=== PATIENT | female | born 1945 | race Caucasian/White ===

== ENCOUNTER → 2017-07-22 | Outpatient (CLI) | payer OTHER ==
[2013-11-02 10:03] VITALS: BP 162/66
--- NOTE | 2017-07-23 09:57 | RAD ---
Upper GI and small-bowel follow-through Indication: Abdominal pain. History of duodenal ulcer. Technique: Multiple spot radiographic images were obtained. Fluoroscopic images were obtained after s wallowing barium per protocol. 2.2 min of total fluoro time recorded. Findings: Small hiatal hernia was noted. Free reflux was seen throughout the examination, to the leve l of the cervical esophagus. Esophageal dysmotility with tertiary and secondary contractions noted. Sewing Machine Operator Floorperson radiograph suggests that there may be a left renal stone, measuring about 7 mm. The small bowel follow-through is normal with contrast entering the colon at approximately 15-30 min from the beginn ing of the examination. Swallowing in the cervical esophagus, with the oral phase of swallowing appears normal. Mild spine de generative changes noted. Stomach appears grossly normal without large ulceration identified. The duo denum appears normal. Jejunum is in normal position. Impression: 1. Free esophageal reflux to the level of the cervical esophagus with esophageal dysmotility. 2. Small hiatal hernia. 3. While no large lesion is identified, endoscopic followup offers increased sensitivity and specific ity for underlying lesion. 4. Possible left renal stone. 5. Normal small bowel follow-through. Reported By:
== END | disposition home or self-care (01) | DRG 392 ==
LOC: RAD 11:20
PROVIDERS: ATTEND Family Medicine
DX: R10.84 Generalized abdominal pain (principal); R11.0 Nausea; Z87.19 Personal history of other diseases of the digestive system; K21.9 Gastro-esophageal reflux disease without esophagitis; K44.9 Diaphragmatic hernia without obstruction or gangrene
CPT/HCPCS: 74241; 74250

== ENCOUNTER → 2018-02-03 | Outpatient (CLI) | payer OTHER ==
[2013-11-02 10:03] VITALS: BP 162/66
--- NOTE | 2018-02-04 15:21 | VAS ---
Examination: Bilateral lower extremity arterial duplex Doppler study. Clinical History: Left leg pain. Technique: Duplex Doppler Ultrasound was used to evaluate the arterial systems of the lower extremiti es bilaterally. Comparison: None available. Findings: The left and right ankle brachial index were not calculated. There is biphasic spectral wave forms in the right common femoral, proximal, mid and distal superfici al femoral, popliteal, posterior tibial and dorsalis pedis arteries. There is biphasic spectral wave forms in the left common femoral, proximal, mid and distal superficia l femoral, popliteal, posterior tibial and dorsalis pedis arteries. There is mild atherosclerotic plaque seen bilaterally. Mildly elevated peak systolic velocities are n oted in the proximal, mid and distal portions of the left and right posterior tibial artery is, sugge stive of stenoses. The following peak systolic flow velocities are measured in cm/s. Right Leg Left Leg Common femoral artery 135 133 SFA proximal 93 112 SFA mid 110 101 SFA distal 112 107 Popliteal 92 72 Posterior tibial proximal 108 104 Posterior tibial mid 126 106 Posterior tibial distal 92 100 Dorsalis pedis 76 29 Impression: 1. Mildly elevated peak systolic velocities are noted in the proximal, mid and distal portions of the left and right posterior tibial artery is, suggestive of stenoses. Reported By:
== END ==
LOC: RAD 15:06
PROVIDERS: ATTEND Psychiatry & Neurology Neurology
DX: M79.605 Pain in left leg (principal); I73.89 Other specified peripheral vascular diseases
CPT/HCPCS: 93925

== ENCOUNTER → 2018-02-25 | Outpatient (CLI) | payer OTHER ==
[2013-11-02 10:03] VITALS: BP 162/66
--- NOTE | 2018-02-25 16:56 | RAD ---
Examination: Left lower leg, two views History: Foreign body Findings: Intact tibia and fibula, without evidence for fracture, bone destruction or infection. Ther e is a 1.0 cm soft tissue opacity a medially anterior, and 1.5 cm lateral to the mid tibia. Impression: No acute osseous abnormality. Soft tissue density as described may represent subcutaneo us foreign object. Correlate clinically. Reported By:
== END ==
LOC: RAD 16:20
PROVIDERS: ATTEND Surgery
DX: S80.852A Superficial foreign body, left lower leg, initial encounter (principal); X58.XXXA Exposure to other specified factors, initial encounter
CPT/HCPCS: 73590

== ENCOUNTER → 2018-03-04 | Outpatient (CLI) | payer OTHER ==
[2013-11-02 10:03] VITALS: BP 162/66
[2018-03-04 15:59] LABS: BASOPHILS % (AUTO) 0.5 % (0.2-1.0); EOSINOPHILS % (AUTO) 0.3 % (0.9-2.9); HEMOGLOBIN 14.8 g/dL (12.0-16.0); LYMPHOCYTES # (AUTO) 2.9 X10^3/uL (1.3-2.9); LYMPHOCYTES % (AUTO) 38.7 % (21.0-51.0); MEAN CORPUSCULAR HGB CONC 33.6 g/dL (33.0-35.0); MEAN CORPUSCULAR VOLUME 98.1 fL (80.0-100.0); MEAN PLATELET VOLUME 8.1 fL (7.4-11.0); MONOCYTES # (AUTO) 0.4 x10^3/uL (0.3-0.8); MONOCYTES % (AUTO) 5.9 % (0.0-13.0); NEUTROPHILS # (AUTO) 4.1 x10^3/uL (2.2-4.8); NEUTROPHILS % (AUTO) 54.6 % (42.0-75.0); PLATELET COUNT 237 X10^3/uL (150.0-450.0); RED BLOOD COUNT 4.49 X10^6/uL (3.5-5.4); RED CELL DISTRIBUTION WIDTH 13.2 % (11.6-16.5); WHITE BLOOD COUNT 7.6 X10^3/uL (3.6-10.0)
[2018-03-04 16:12] LABS: ALANINE AMINOTRANSFERASE 44 Units/L (12-78); ALBUMIN 3.9 g/dL (3.4-5.0); ALKALINE PHOSPHATASE 70 Units/L (46-116); ASPARTATE AMINO TRANSFERASE 30 Units/L (15-37); BLOOD UREA NITROGEN 13 mg/dL (7-18); CALCIUM 8.5 mg/dL (8.5-10.1); CHLORIDE 109 mmol/L (98-107); COR NA(FOR HYPERGLY) 144 mmol/L (136-145); CREATININE 0.96 mg/dL (0.55-1.02); SODIUM 144 mmol/L (136-145); TOTAL PROTEIN 7.4 g/dL (6.4-8.2); eGFR BLACK RACES > 60 (>60); eGFR NON BLACK RACES > 60 (>60)
== END ==
LOC: LAB 15:30
PROVIDERS: ATTEND Surgery
DX: S80.859A Superficial foreign body, unspecified lower leg, initial encounter (principal); X58.XXXA Exposure to other specified factors, initial encounter
CPT/HCPCS: 36415; 80053; 85025; 85730

== ENCOUNTER 2018-03-09 07:09 | Day surgery (SDC) | payer OTHER ==
[2018-03-09] MEDS ORDERED: MARCAINE 0.5% ONE (07:22)
[2018-03-09] MEDS ORDERED: LR 1000 ML IV 1,000 ML IV ONE (07:23)
[2018-03-09] MEDS ORDERED: HYDROGEN PEROXIDE 3% ONE (07:24)
[2018-03-09] MEDS ORDERED: BACITRACIN VIAL ONE (07:24)
[2018-03-09] MEDS ORDERED: BACTROBAN OINT ONE (07:24)
[2018-03-09] MEDS ORDERED: ANCEF 1 GM IV PREMIX* 1 GM/50 ML BAG IV ONE ×2 (07:44→08:00)
[2018-03-09] MEDS ORDERED: NS IRRIGATION 1000 ML 1,000 ML with BACITRACIN VIAL 50,000 UNIT IR ONE ×2 (08:12)
[2018-03-09] MEDS ORDERED: LR 1000 ML IV 1,000 ML IV SCH (09:00)
[2018-03-09 09:55] VITALS: BP 123/61
[2018-03-09] MEDS ORDERED: VERSED ONE ×2 (09:59→14:34)
[2018-03-09] MEDS ORDERED: DIPRIVAN VIAL ONE ×2 (09:59→14:34)
== END 2018-03-09 09:41 | disposition home or self-care (01) ==
LOC: SURG1 07:09
PROVIDERS: ATTEND Surgery
PROC: 0JCP0ZZ Extirpation of Matter from Left Lower Leg Subcutaneous Tissue and Fascia, Open Approach (ICD-10-PCS; principal; 2018-03-09 08:00)
DX: S80.852A Superficial foreign body, left lower leg, initial encounter (principal); X58.XXXA Exposure to other specified factors, initial encounter; I73.89 Other specified peripheral vascular diseases
CPT/HCPCS: 99100; A4222; S0020; J0690; J2250; J3490; J7120

== ENCOUNTER 2022-03-24 14:04 | Observation (INO) ==
--- NOTE | 2022-03-24 14:49 | DR.CP ---
HPI Time Seen Time Seen by Provider: 03/24/22 14:49 PCP Primary Care Physician: MALLORIE EL HPI Comment HPI Comment: PATIENT IS 76YR OLD MALE IN ER WITH CHEST PAIN TIME FEW HOURS. SHE WAS OUTSIDE IN THE [place] WHEN PAIN STARTED. GOING INSIDE AND PUTTING ON HER OXGEN HELP PAIN. PATIENT SAID PAIN IS CURRENTLY NONRAGIATING 5/10. DENIES PREVIOUS PAIN. Complaint Chief Complaint Doctor Comments: CHEST PAIN. Chief Complaint:: PT. STATES SHE WAS OUTSIDE IN THE [place] WITH HER DAUGHTER WHEN SHE BEGAN HAVING CHEST PAIN. PAIN BEGAN AT 1200. PT. STATES SHE WENT INSIDE TO LIE DOWN AND PUT ON HER PRN O2 AND FELT SOME BETTER BUT WANTED TO COME GET SEEN ABOUT. PT. STATES THE PAIN WORSENS WHEN SHE TAKES A DEEP BREATH. COVID-19 Coronavirus risk:travel/contact w/high risk person: No Has patient experienced Coronavirus symptoms: No Reviewed Nurses Notes Review: Yes Source History Provided: Patient Mode of Arrival Mode of Arrival: Ambulatory Timing Onset of Chief Complaint: 03/24/22 Came on: Suddenly Duration Duration: Constant Duration: Hours Location Location of Chest Pain: Chest Chest Pain Radiation Location: None Context Onset: With light exertion Cardiac Risk Factors: Hyperlipidemia, HTN and Diabetes PE Risk Factors: None History of: None Prehospital Care: Oxygen Quality Quality: Sharp Severity Severity: Moderate Modifying Factors Worsens: Exertion Impoves: Rest Associated Signs and Symptoms Associated Signs and Symptoms: Shortness of Breath Other History Other History: HTN, DM, CAD. PMH PMH Past Medical History: Yes Past Medical History: Diabetes, Dyslipidemia and Hypertension Past Medical History Comment: A-FIB Past Surgical History: Yes Surgical History: , Cholecystectomy, Hysterectomy, Tonsillectomy and Other Past Surgical History Comment: X 3 Family History History of Family Medical Conditions: Yes Family Medical History: Hypertension Social History Does patient currently use any type of tobacco product: No Have you used tobacco products in the last 12 months: No Type of Tobacco Use: None Does any household member use tobacco: No Alcohol Use: None Do you use any recreational Drugs:: No Lives With: Alone Lives Where: Home Travel Risk Coronavirus risk:travel/contact w/high risk person: No Has patient experienced Coronavirus symptoms: No Infectious screening In the last 2 months have you had wt loss of >10#?: NO Have you had fever, night sweats or hemotysis?: No Have you traveled outside the country in the last 6 months?: No Isolation: Standard ROS Review of Systems Constitutional: See HPI, Weakness and Fatigue; negative Fever Eyes: No Symptoms Reported and See HPI ENTM: No Symptoms Reported and See HPI; negative Nose Discharge and Nose Congestion Respiratoy: No Symptoms Reported, See HPI and Short of Breath; negative Moist Cough and Wheezing Cardiovascular: See HPI and Chest Pain Gastrointestinal/Abdominal: No Symptoms Reported and See HPI; negative Abdominal Pain, Diarrhea and Vomiting Genitourinary: No Symptoms Reported and See HPI; negative Dysuria and Hematuria Neurological: See HPI and Weakness; negative Headache and Dizziness Musculoskeletal: No Symptoms Reported and See HPI Integumentary: No Symptoms Reported and See HPI; negative Rash Hematologic/Lymphatic: No Symptoms Reported, See HPI, Easy Bleeding and Easy Bruising Endocrine: No Symptoms Reported and See HPI; negative Increased Thirst and Increased Urine Psychiatric: No Symptoms Reported and See HPI All Other Systems: Reviewed and Negative PE Vitals Vitals: Temperature 97.9 F Pulse Rate 66 Respiratory Rate 34 Blood Pressure 142/63 O2 Sat by Pulse Oximetry 98 General Limitations: No Limitations General Appearance: Alert and In No Apparent Distress Head Head Exam: Normal Inspection Eyes Eye exam: Normal Appearance; negative Scleral Icterus and Conjunctival Injection ENT ENT Exam: Normal Exam, Normal Oropharynx, Normal External Ear Exam and TM's Normal Bilaterally Chest Chest Inspection: Normal Inspection and Symmetric Chest Wall Rise; negative Tenderness Respiratory Respiratory Exam: Normal Lung Sounds Bilat; negative Accessory Muscle Use, Chest Wall Tenderness and Respiratory Distress Respiratory Exam: Bilateral: Rhonchi and Lower: Rhonchi Cardiovascular Cardiovascular Exam: Regular Rate, Normal Rhythm and Normal Heart Sounds; negative Systolic Murmur and Diastolic Murmur Pulse: Normal Edema: Normal Abdominal Exam Abdominal Exam: Normal Inspection, Normal Bowel Sounds and Soft; negative Tenderness Extremities Extremities Exam: Normal Inspection and Normal Capillary Refill Back Back Exam: Normal Inspection; negative (R) CVA Tenderness and (L) CVA Tenderness Neurologic Neurological Exam: Alert and Oriented X3; negative Motor Sensory Deficit Psychiatric Psychiatric Exam: Normal Affect and Normal Mood Skin Skin Exam: Warm, Dry, Intact and Normal Color COURSE Treatment Treatment: SEE ORDERS DONE WHILE PATIENT IN ER. LABS, EKG AND XRAY REPORT DISCUSSED WITH PATIENT. SHE IS ADMITTED TO HOSPITAL FOR FURTHER MANAGEMENT. Consultation Consultation Comments: DISCUSSED PATIENT WITH DR. HAN. HE WILL ADMIT PATIENT. Education/Counseling Education/Counseling: Patient Educated On: Diagnosis ROR Labs Reviewed Laboratory Results Reviewed?: Yes Result Diagrams: 03/25/22 03:00 03/25/22 03:00 Laboratory: WBC 7.0 X10^3/uL (3.6-10.0) 03/24/22 14:38 RBC 4.16 X10^6/uL (3.5-5.4) 03/24/22 14:38 Hgb 14.0 g/dL (12.0-16.0) 03/24/22 14:38 Hct 40.8 % (36.0-47.0) 03/24/22 14:38 MCV 98.2 fL (80.0-100.0) 03/24/22 14:38 MCH 33.6 pg (27.0-34.0) 03/24/22 14:38 MCHC 34.2 g/dL (33.0-35.0) 03/24/22 14:38 RDW 13.4 % (11.6-16.5) 03/24/22 14:38 Plt Count 204 X10^3/uL (150.0-450.0) 03/24/22 14:38 MPV 8.7 fL (7.4-11.0) 03/24/22 14:38 Neut % (Auto) 67.6 % (42.0-75.0) 03/24/22 14:38 Lymph % (Auto) 25.3 % (21.0-51.0) 03/24/22 14:38 [place] % (Auto) 5.6 % (0.0-13.0) 03/24/22 14:38 Eos % (Auto) 0.4 % (0.9-2.9) L 03/24/22 14:38 Baso % (Auto) 1.1 % (0.2-1.0) H 03/24/22 14:38 Neut # (Auto) 4.7 x10^3/uL (2.2-4.8) 03/24/22 14:38 Lymph # (Auto) 1.8 X10^3/uL (1.3-2.9) 03/24/22 14:38 [place] # (Auto) 0.4 x10^3/uL (0.3-0.8) 03/24/22 14:38 Eos # (Auto) 0.0 x10^3/uL (0.0-0.2) 03/24/22 14:38 Baso # (Auto) 0.1 X10^3/uL (0.0-0.1) 03/24/22 14:38 Absolute Nucleated RBC 0.1 /100WBC 03/24/22 14:38 PT 21.5 SECONDS (11.8-14.3) 03/24/22 14:38 INR Target Range - 03/24/22 14:38 INR 1.96 (0.8-1.3) H 03/24/22 14:38 APTT 30.6 SECONDS (22.9-36.5) 03/24/22 14:38 PTT Comment - 03/24/22 14:38 Sodium 142 mmol/L (136-145) 03/24/22 14:38 Corrected Sodium TNP 03/24/22 14:38 Potassium 4.1 mmol/L (3.5-5.1) 03/24/22 14:38 Chloride 107 mmol/L (98-107) 03/24/22 14:38 Carbon Dioxide 27.8 mmol/L (21-32) 03/24/22 14:38 BUN 14 mg/dL (7-18) 03/24/22 14:38 Creatinine 0.91 mg/dL (0.55-1.02) 03/24/22 14:38 Est GFR (MDRD) Af Amer > 60 (>60) 03/24/22 14:38 Est GFR (MDRD) Non-Af > 60 (>60) 03/24/22 14:38 Glucose 86 mg/dL (65-99) 03/24/22 14:38 POC Glucose (mg/dL) 94 mg/dL (65-99) 03/24/22 15:46 Calcium 8.9 mg/dL (8.5-10.1) 03/24/22 14:38 Corrected Calcium TNP 03/24/22 14:38 Magnesium 1.7 mg/dL (1.7-2.9) 03/24/22 14:38 Total Bilirubin 0.50 mg/dL (0.2-1.0) 03/24/22 14:38 AST 26 Units/L (15-37) 03/24/22 14:38 ALT 30 Units/L (12-78) 03/24/22 14:38 Alkaline Phosphatase 77 Units/L (46-116) 03/24/22 14:38 Creatine Kinase 97 Units/L (26-192) 03/24/22 14:38 CK-MB (CK-2) < 1.0 ng/mL (0-4.0) 03/24/22 14:38 CK/CKMB % Calc 1.0 % (<4) 03/24/22 14:38 Troponin I High Sens 8.6 ng/L (4.0-60.0) 03/24/22 14:38 Total Protein 6.3 g/dL (6.4-8.2) L 03/24/22 14:38 Albumin 3.5 g/dL (3.4-5.0) 03/24/22 14:38 Globulin 2.8 g/dL (2.5-4.5) 03/24/22 14:38 Albumin/Globulin Ratio 1.3 Ratio (1.1-2.1) 03/24/22 14:38 SARS-CoV-2 (PCR) Negative (NEGATIVE) 03/24/22 17:23 XRAY XRAY Interpreted by: Radiologist (REPORT NOTED) and Self EKG Rate: 61 [place]: Normal Rhythm: NSR Block: None Hypertrophy: LVH ST: Nonsp Opioid Opioid Risk Tool Age (Kunal box if 16-45): No History of Preadolescent Sexual Abuse: No Total: 0 Total Score Risk Category: Low Risk Copyright: Spicer predicting aberrant behaviors Diagnosis Discharge Problem: Chest pain Qualifiers: Chest pain type: precordial pain Qualified Code(s): R07.2 - Precordial pain Instructions Instructions: Nonspecific Chest Pain Nonspecific Chest Pain, Adult, [id number] Chest Wall Pain, [id number] Chest Wall Pain Forms: Excuse From Work or School Precautions for COVID19 [facility] Social Distancing
[2022-03-24 15:07] LABS: BASOPHILS # (AUTO) 0.1 X10^3/uL (0.0-0.1); BASOPHILS % (AUTO) 1.1 % (0.2-1.0); EOSINOPHILS % (AUTO) 0.4 % (0.9-2.9); HEMATOCRIT 40.8 % (36.0-47.0); LYMPHOCYTES # (AUTO) 1.8 X10^3/uL (1.3-2.9); LYMPHOCYTES % (AUTO) 25.3 % (21.0-51.0); MEAN CORPUSCULAR HEMOGLOBIN 33.6 pg (27.0-34.0); MEAN CORPUSCULAR HGB CONC 34.2 g/dL (33.0-35.0); MEAN CORPUSCULAR VOLUME 98.2 fL (80.0-100.0); MEAN PLATELET VOLUME 8.7 fL (7.4-11.0); MONOCYTES # (AUTO) 0.4 x10^3/uL (0.3-0.8); MONOCYTES % (AUTO) 5.6 % (0.0-13.0); NEUTROPHILS # (AUTO) 4.7 x10^3/uL (2.2-4.8); NEUTROPHILS % (AUTO) 67.6 % (42.0-75.0); RED BLOOD COUNT 4.16 X10^6/uL (3.5-5.4); RED CELL DISTRIBUTION WIDTH 13.4 % (11.6-16.5)
[2022-03-24 15:08] LABS: ALANINE AMINOTRANSFERASE 30 Units/L (12-78); ALBUMIN 3.5 g/dL (3.4-5.0); ALKALINE PHOSPHATASE 77 Units/L (46-116); ASPARTATE AMINO TRANSFERASE 26 Units/L (15-37); BLOOD UREA NITROGEN 14 mg/dL (7-18); CALCIUM 8.9 mg/dL (8.5-10.1); CARBON DIOXIDE 27.8 mmol/L (21-32); CHLORIDE 107 mmol/L (98-107); CREATINE KINASE 97 Units/L (26-192); CREATINE KINASE MB < 1.0 ng/mL (0-4.0); CREATININE 0.91 mg/dL (0.55-1.02); MAGNESIUM 1.7 mg/dL (1.7-2.9); SODIUM 142 mmol/L (136-145); TOTAL PROTEIN 6.3 g/dL (6.4-8.2); eGFR NON BLACK RACES > 60 (>60)
[2022-03-24] MEDS ORDERED: CATAPRES TAB 0.2 MG PO ONE (16:10)
--- NOTE | 2022-03-24 16:14 | RAD ---
HISTORYChest painSTUDYAP chestCOMPARISONFebruary 2016 report onlyFINDINGSNormal heart size with clear lungs. Right diaphragm elevated. There is no evidence for pneumonia, atelectasis or CHF.IMPRESSIONNo significant abnormality identified.Electronically signed by: DALLAS RICHARDS (March 24, 2022 16:13:52)
[2022-03-24] MEDS ORDERED: CATAPRES TAB 0.2 MG ONE (16:16)
[2022-03-24] MEDS ORDERED: VALIUM PO PRN (19:14)
[2022-03-24] MEDS ORDERED: NS 1,000 ML IV 1,000 ML IV SCH (19:14)
[2022-03-24] MEDS ORDERED: SYNTHROID 88 mcg TAB PO SCH (19:14)
[2022-03-24] MEDS ORDERED: NEURONTIN CAP 300 MG PO SCH ×2 (19:14→21:00)
[2022-03-24] MEDS ORDERED: LASIX PO PRN (19:14)
[2022-03-24] MEDS: NORCO 7.5/325 MG TAB PO PRN (19:56)
[2022-03-24] MEDS ORDERED: SNACK - Diabetic Appropriate PO SCH (20:00)
[2022-03-24] MEDS ORDERED: COUMADIN TAB 7.5 MG (JANTOVEN) PO SCH (20:00)
[2022-03-24] MEDS ORDERED: GLUCOPHAGE ONE (20:22)
[2022-03-24] MEDS ORDERED: LIPITOR TAB 20 MG PO SCH (21:00)
[2022-03-24] MEDS: GLUCOPHAGE PO SCH (21:32)
[2022-03-24 21:35] LABS: CKMB % 1.2 % (<4); CREATINE KINASE 86 Units/L (26-192); CREATINE KINASE MB < 1.0 ng/mL (0-4.0)
[2022-03-24] MEDS: EXELON PO SCH (21:35)
[2022-03-24] MEDS: ZANAFLEX PO SCH (21:36)
[2022-03-24] MEDS: MICRO K EXTEN CAP 10 MEQ PO SCH (21:40)
[2022-03-24] MEDS: BETAPACE AF PO SCH (21:44)
[2022-03-24] MEDS: CARDIZEM TAB 30 MG PLAIN PO SCH (21:45)
[2022-03-25 00:21] VITALS: BMI 30.8
[2022-03-25 03:12] LABS: MEAN CORPUSCULAR HGB CONC 34.5 g/dL (33.0-35.0)
[2022-03-25 03:15] LABS: BASOPHILS % (AUTO) 0.4 % (0.2-1.0); EOSINOPHILS % (AUTO) 0.4 % (0.9-2.9); HEMATOCRIT 37.5 % (36.0-47.0); LYMPHOCYTES # (AUTO) 2.6 X10^3/uL (1.3-2.9); LYMPHOCYTES % (AUTO) 46.3 % (21.0-51.0); MEAN CORPUSCULAR HEMOGLOBIN 33.7 pg (27.0-34.0); MEAN CORPUSCULAR VOLUME 97.7 fL (80.0-100.0); MEAN PLATELET VOLUME 8.3 fL (7.4-11.0); MONOCYTES # (AUTO) 0.4 x10^3/uL (0.3-0.8); MONOCYTES % (AUTO) 7.1 % (0.0-13.0); NEUTROPHILS # (AUTO) 2.6 x10^3/uL (2.2-4.8); NEUTROPHILS % (AUTO) 45.8 % (42.0-75.0); RED BLOOD COUNT 3.84 X10^6/uL (3.5-5.4); RED CELL DISTRIBUTION WIDTH 13.1 % (11.6-16.5); WHITE BLOOD COUNT 5.6 X10^3/uL (3.6-10.0)
[2022-03-25 03:29] LABS: ALANINE AMINOTRANSFERASE 26 Units/L (12-78); ALBUMIN 3.1 g/dL (3.4-5.0); ALKALINE PHOSPHATASE 69 Units/L (46-116); ASPARTATE AMINO TRANSFERASE 22 Units/L (15-37); BLOOD UREA NITROGEN 12 mg/dL (7-18); CALCIUM 8.6 mg/dL (8.5-10.1); CARBON DIOXIDE 30.3 mmol/L (21-32); CHLORIDE 107 mmol/L (98-107); CHOL/HDL RATIO 2.3 (0.0-5.0); CHOLESTEROL 136 mg/dL (0-200); CKMB % 1.3 % (<4); COR CA(FOR HYPOALB) 9.3 mg/dL (8.5-10.1); COR NA(FOR HYPERGLY) 142 mmol/L (136-145); CREATINE KINASE 76 Units/L (26-192); CREATINE KINASE MB < 1.0 ng/mL (0-4.0); CREATININE 0.81 mg/dL (0.55-1.02); HDL CHOLESTEROL 59 mg/dL (40-60); SODIUM 142 mmol/L (136-145); TOTAL PROTEIN 5.6 g/dL (6.4-8.2); TRIGLYCERIDES 70 mg/dL (0-150); eGFR NON BLACK RACES > 60 (>60)
[2022-03-25] MEDS: NORCO 7.5/325 MG TAB PO PRN (07:28)
[2022-03-25 07:41] VITALS: BP 151/79
[2022-03-25] MEDS ORDERED: SYNTHROID 88 mcg TAB PO SCH (08:00)
[2022-03-25] MEDS ORDERED: GLUCOPHAGE ONE (08:21)
[2022-03-25] MEDS ORDERED: LEXAPRO ONE (08:22)
[2022-03-25] MEDS: GLUCOPHAGE PO SCH (08:26)
[2022-03-25] MEDS: BETAPACE AF PO SCH (08:28)
[2022-03-25] MEDS: CARDIZEM TAB 30 MG PLAIN PO SCH (08:29)
[2022-03-25] MEDS: MICRO K EXTEN CAP 10 MEQ PO SCH (08:29)
[2022-03-25] MEDS: EXELON PO SCH (08:29)
[2022-03-25] MEDS: ZANAFLEX PO SCH (08:33)
[2022-03-25] MEDS ORDERED: AMARYL TAB 4 MG PO SCH (09:00)
[2022-03-25] MEDS ORDERED: LEXAPRO PO SCH (09:00)
[2022-03-25] MEDS ORDERED: NEURONTIN CAP 300 MG PO SCH (09:00)
--- NOTE | 2022-03-25 09:21 | DR.SSS ---
SHORT STAY SUMMARY Admission Date Date of Admission: 03/24/22 Discharge Date Discharge Date: 03/25/22 Admission Diagnoses Admission Diagnoses: Chest pain Discharge Diagnoses Discharge Diagnoses: Chest pain GERD Chief Complaint Chief Complaint: Chest pain History of Present Illness History of Present Illness: Pt is a 76 year old female past medical history of Atrial fibrillation, HTN, DMT2, presenting with chest pain that started yesterday when she was in the garden. She reports that pain was midsternal and sharp and that she had to rest for it to ease. Pt felt some relief but became anxious when pain seemed like it was coming back. Denies nausea, vomiting, radiation of pain, diaphoresis, lightheaded, or shortness of breath. Past Medical History Past Medical History: Diabetes, Dyslipidemia and Hypertension Past Surgical History Surgical History: Appendectomy, , Cholecystectomy and Tonsillectomy Allergies Allergies Allergy/AdvReac Type Severity Reaction Status Date / Time diclofenac [From Voltaren] Allergy Verified 03/24/22 14:23 Medications Home Medications: diclofenac [From Voltaren] Allergy (Verified 03/24/22 14:23) CONTINUE taking the following medications escitalopram oxalate 15 mg PO 03/24/22 [History] gabapentin 300 mg PO DAILY 03/24/22 [History] gabapentin 600 mg PO QHS 03/24/22 [History] glimepiride 2 mg PO QAM 03/24/22 [History] levothyroxine 88 mcg PO .ASDIRECTED 03/24/22 [History] rivastigmine tartrate 3 mg PO BID 03/24/22 [History] tizanidine 2 mg PO BID 03/24/22 [History] New Prescriptions famotidine [Pepcid AC] 20 mg PO BID 30 Days #60 tab 03/25/22 [Rx] Family History Family Medical History: Hypertension Social History Does patient currently use any type of tobacco product: No Have you used tobacco products in the last 12 months: No Type of Tobacco Use: Cigarettes Does any household member use tobacco: No Alcohol Use: None Drug Use: Prescription Drugs Review of Systems Constitutional: No Symptoms Reported Eyes: No Symptoms Reported ENT: No Symptoms Reported Respiratory: No Symptoms Reported Cardiovascular: Chest Pain Gastrointestinal: Abdominal Pain Genitourinary: No Symptoms Reported Musculoskeletal: No Symptoms Reported Skin: No Symptoms Reported Neurological: No Symptoms Reported Physical Exam Vital Signs: Last Vital Signs Temp 98.1 F 03/25/22 07:40 Pulse 68 03/25/22 07:40 Resp 18 03/25/22 07:40 BP 151/79 03/25/22 07:40 Pulse Ox 96 03/25/22 07:40 Oriented: Normal Eyes: Normal Ear: Normal Nose: Normal Throat: Normal Respiratory: Clear Throughout Cardiovascular: Normal : Normal Auscultation: Bowel Sounds: Normal Palpation: Normal Tenderness: Normal Skin: Normal Musculoskeletal: Normal Psychiatric: Normal Mood Description: Calm Speech Pattern: Clear Labs Labs: Laboratory Last Values WBC 5.6 X10^3/uL (3.6-10.0) 03/25/22 03:00 RBC 3.84 X10^6/uL (3.5-5.4) 03/25/22 03:00 Hgb 13.0 g/dL (12.0-16.0) 03/25/22 03:00 Hct 37.5 % (36.0-47.0) 03/25/22 03:00 MCV 97.7 fL (80.0-100.0) 03/25/22 03:00 MCH 33.7 pg (27.0-34.0) 03/25/22 03:00 MCHC 34.5 g/dL (33.0-35.0) 03/25/22 03:00 RDW 13.1 % (11.6-16.5) 03/25/22 03:00 Plt Count 172 X10^3/uL (150.0-450.0) 03/25/22 03:00 MPV 8.3 fL (7.4-11.0) 03/25/22 03:00 Neut % (Auto) 45.8 % (42.0-75.0) 03/25/22 03:00 Lymph % (Auto) 46.3 % (21.0-51.0) 03/25/22 03:00 [place] % (Auto) 7.1 % (0.0-13.0) 03/25/22 03:00 Eos % (Auto) 0.4 % (0.9-2.9) L 03/25/22 03:00 Baso % (Auto) 0.4 % (0.2-1.0) 03/25/22 03:00 Neut # (Auto) 2.6 x10^3/uL (2.2-4.8) 03/25/22 03:00 Lymph # (Auto) 2.6 X10^3/uL (1.3-2.9) 03/25/22 03:00 [place] # (Auto) 0.4 x10^3/uL (0.3-0.8) 03/25/22 03:00 Eos # (Auto) 0.0 x10^3/uL (0.0-0.2) 03/25/22 03:00 Baso # (Auto) 0.0 X10^3/uL (0.0-0.1) 03/25/22 03:00 Absolute Nucleated RBC 0.0 /100WBC 03/25/22 03:00 PT 21.5 SECONDS (11.8-14.3) 03/24/22 14:38 INR Target Range - 03/24/22 14:38 INR 1.96 (0.8-1.3) H 03/24/22 14:38 APTT 30.6 SECONDS (22.9-36.5) 03/24/22 14:38 PTT Comment - 03/24/22 14:38 Sodium 142 mmol/L (136-145) 03/25/22 03:00 Corrected Sodium 142 mmol/L (136-145) 03/25/22 03:00 Potassium 4.2 mmol/L (3.5-5.1) 03/25/22 03:00 Chloride 107 mmol/L (98-107) 03/25/22 03:00 Carbon Dioxide 30.3 mmol/L (21-32) 03/25/22 03:00 BUN 12 mg/dL (7-18) 03/25/22 03:00 Creatinine 0.81 mg/dL (0.55-1.02) 03/25/22 03:00 Est GFR (MDRD) Af Amer > 60 (>60) 03/25/22 03:00 Est GFR (MDRD) Non-Af > 60 (>60) 03/25/22 03:00 Glucose 114 mg/dL (65-99) H 03/25/22 03:00 POC Glucose (mg/dL) 103 mg/dL (65-99) H 03/25/22 05:27 Calcium 8.6 mg/dL (8.5-10.1) 03/25/22 03:00 Corrected Calcium 9.3 mg/dL (8.5-10.1) 03/25/22 03:00 Magnesium 1.7 mg/dL (1.7-2.9) 03/24/22 14:38 Total Bilirubin 0.40 mg/dL (0.2-1.0) 03/25/22 03:00 AST 22 Units/L (15-37) 03/25/22 03:00 ALT 26 Units/L (12-78) 03/25/22 03:00 Alkaline Phosphatase 69 Units/L (46-116) 03/25/22 03:00 Creatine Kinase 76 Units/L (26-192) 03/25/22 03:00 CK-MB (CK-2) < 1.0 ng/mL (0-4.0) 03/25/22 03:00 CK/CKMB % Calc 1.3 % (<4) 03/25/22 03:00 Troponin I High Sens 9.1 ng/L (4.0-60.0) 03/25/22 03:00 Total Protein 5.6 g/dL (6.4-8.2) L 03/25/22 03:00 Albumin 3.1 g/dL (3.4-5.0) L 03/25/22 03:00 Globulin 2.5 g/dL (2.5-4.5) 03/25/22 03:00 Albumin/Globulin Ratio 1.2 Ratio (1.1-2.1) 03/25/22 03:00 Triglycerides 70 mg/dL (0-150) 03/25/22 03:00 Cholesterol 136 mg/dL (0-200) 03/25/22 03:00 LDL Cholesterol, Calc 63 mg/dL (0-100) 03/25/22 03:00 HDL Cholesterol 59 mg/dL (40-60) 03/25/22 03:00 Cholesterol/HDL Ratio 2.3 (0.0-5.0) 03/25/22 03:00 SARS-CoV-2 (PCR) Negative (NEGATIVE) 03/24/22 17:23 Assessment/Plan (1) Chest pain: Hospital Course Hospital Course: Pt was admitted for chest pain rule out. She was monitored overnight on telemetry. Labs/imaging: Wbc 7, Hgb 14, Plt 204, Na 142, K 4.1, Creatinine 0.91, Glucose 86, A1c 8.9, Troponin 8.6>8.7>9.1, CXR no acute cardiopulmonary findings, Ekg Sinus bradycardia, no STEMI. Cardiac enzymes were trended and negative x 3. On exam this morning, patient has resolution of symptoms. Some of the symptoms possibly related to GERD after further history. Rx pepcid. Will order nuclear stress test outpatient. Referral to cardiology-Dr Zavala. Cardiac precautions discussed. Pt discharged in stable condition, instructed to follow up with pcp in 1 week. Discharge Medications Discharge Medications: Home Medication List escitalopram oxalate 15 mg PO 03/24/22 [History] gabapentin 300 mg PO DAILY 03/24/22 [History] gabapentin 600 mg PO QHS 03/24/22 [History] glimepiride 2 mg PO QAM 03/24/22 [History] levothyroxine 88 mcg PO .ASDIRECTED 03/24/22 [History] rivastigmine tartrate 3 mg PO BID 03/24/22 [History] tizanidine 2 mg PO BID 03/24/22 [History] famotidine [Pepcid AC] 20 mg PO BID 30 Days #60 tab 03/25/22 [Rx] Prescriptions: famotidine [Pepcid AC] Alton Avendano Discharge Disposition Discharge Disposition: Home
[2022-03-25 11:55] LABS: BILIRUBIN,URINE NEGATIVE (NEGATIVE); BLOOD/HEMOGLOBIN,URINE NEGATIVE (NEGATIVE); GLUCOSE, URINE NEGATIVE (NEGATIVE); KETONES,URINE NEGATIVE (NEGATIVE); LEUKOCYTE ESTERASE ,URINE 1+ (NEGATIVE); NITRITES,URINE NEGATIVE (NEGATIVE); PROTEIN,URINE NEGATIVE (NEGATIVE); UROBILINOGEN,URINE NORMAL (NORMAL)
[2022-03-25 11:59] LABS: APPEARANCE,URINE CLEAR (CLEAR); COLOR,URINE YELLOW (YELLOW)
[2022-03-25 12:11] LABS: BACTERIA,URINE NEGATIVE /HPF (NEGATIVE); RBC,URINE NONE SEEN /HPF (0-3); SQUAMOUS EPITHELIAL CELL,UR RARE /HPF (NEGATIVE)
== END 2022-03-25 11:50 | disposition home or self-care (01) ==
LOC: ER 14:04 → MED/SURG 14:04
PROVIDERS: ADMIT Family Medicine; ATTEND Family Medicine
DX: R00.1 Bradycardia, unspecified; R07.89 Other chest pain; R79.1 Abnormal coagulation profile; Z20.822 Contact with and (suspected) exposure to COVID-19; E11.65 Type 2 diabetes mellitus with hyperglycemia; E78.2 Mixed hyperlipidemia; I10 Essential (primary) hypertension; M79.7 Fibromyalgia

== ENCOUNTER 2024-03-03 13:13 | Observation (INO) ==
[2024-03-03 13:22] VITALS: BMI 23.3
--- NOTE | 2024-03-03 13:52 | DR.GENAD ---
HPI Time Seen Time Seen by Provider: 03/03/24 13:48 PCP Primary Care Physician: Cammy Ambrosio HPI Comment HPI Comment: generalized weakness faily=ure to thrive lives alone states and sometimes when she walks around gets dizzy sometimes otherwise she admits she doesnt get regular meals sometimes and doesnt remember everything that goes on each day she feels she may need some assist living care but has questions about things regarding advanced manufacturing engineer care Complaint/Symptoms Chief Complaint:: pt reports tremors and sweating that have been going on "for a while". pt states she lives alone and has a hard time taking care of herself. reports back pain 04/01 but denies any fall/injury. COVID-19 Coronavirus risk:travel/contact w/high risk person: No Has patient experienced Coronavirus symptoms: No Source History Provided: Patient Mode of Arrival Mode of Arrival: Wheelchair Timing Onset of Chief Complaint: 03/03/24 PMH PMH Past Medical History: Yes Past Medical History: Anxiety, Asthma, Depression, Diabetes, Dyslipidemia, Hypertension, Hypothyroidism and Kidney Stones Past Medical History Comment: afib, skin cancer Past Surgical History: Yes Surgical History: Appendectomy, , Cholecystectomy, Hysterectomy and Tonsillectomy Family History History of Family Medical Conditions: Yes Family Medical History: Diabetes Mellitus, Cancer, [place], Sudden Cardiac and Hypertension Social History Alcohol Use: None Do you use any recreational Drugs:: No Lives With: Alone Lives Where: Home Travel Risk Coronavirus risk:travel/contact w/high risk person: No Has patient experienced Coronavirus symptoms: No Infectious screening Have you traveled outside the country in the last 6 months?: No Isolation: Standard ROS Review of Systems All Other Systems: Reviewed and Negative PE Vital Signs Vitals: Vital Signs Temperature 98.0 F Pulse Rate 78 Respiratory Rate 20 Blood Pressure 124/74 O2 Sat by Pulse Oximetry 96 General General Appearance: Alert and Lethargic ENT ENT Exam: Normal Exam Neck Neck Exam: Normal Inspection Respiratory Respiratory Exam: Normal Lung Sounds Bilat Abdominal Exam Abdominal Exam: Normal Inspection and Normal Bowel Sounds Back Back Exam: Normal Inspection Psychiatric Psychiatric Exam: Flat Affect Skin Skin Exam: Warm and Dry COURSE Consultation Called: 16:58 Consultation Comments: Furtodo who agreed to admit for failure to thrive ROR Labs Reviewed Laboratory Results Reviewed?: Yes 03/03/24 14:40 03/03/24 14:40 Laboratory: WBC 8.7 X10^3/uL (3.6-10.0) 03/03/24 14:40 RBC 4.25 X10^6/uL (3.5-5.4) 03/03/24 14:40 Hgb 14.3 g/dL (12.0-16.0) 03/03/24 14:40 Hct 42.0 % (36.0-47.0) 03/03/24 14:40 MCV 98.8 fL (80.0-100.0) 03/03/24 14:40 MCH 33.6 pg (27.0-34.0) 03/03/24 14:40 MCHC 34.1 g/dL (33.0-35.0) 03/03/24 14:40 RDW 12.9 % (11.6-16.5) 03/03/24 14:40 Plt Count 223 X10^3/uL (150.0-450.0) 03/03/24 14:40 MPV 8.3 fL (7.4-11.0) 03/03/24 14:40 Neut % (Auto) 67.4 % (42.0-75.0) 03/03/24 14:40 Lymph % (Auto) 24.6 % (21.0-51.0) 03/03/24 14:40 [place] % (Auto) 7.1 % (0.0-13.0) 03/03/24 14:40 Eos % (Auto) 0.2 % (0.9-2.9) L 03/03/24 14:40 Baso % (Auto) 0.7 % (0.2-1.0) 03/03/24 14:40 Neut # (Auto) 5.9 x10^3/uL (2.2-4.8) H 03/03/24 14:40 Lymph # (Auto) 2.1 X10^3/uL (1.3-2.9) 03/03/24 14:40 [place] # (Auto) 0.6 x10^3/uL (0.3-0.8) 03/03/24 14:40 Eos # (Auto) 0.0 x10^3/uL (0.0-0.2) 03/03/24 14:40 Baso # (Auto) 0.1 X10^3/uL (0.0-0.1) 03/03/24 14:40 Absolute Nucleated RBC 0.0 /100WBC 03/03/24 14:40 Sodium 143 mmol/L (136-145) 03/03/24 14:40 Corrected Sodium 144 mmol/L (136-145) 03/03/24 14:40 Potassium 3.5 mmol/L (3.5-5.1) 03/03/24 14:40 Chloride 105 mmol/L (98-107) 03/03/24 14:40 Carbon Dioxide 29.4 mmol/L (21-32) 03/03/24 14:40 BUN 13 mg/dL (7-18) 03/03/24 14:40 Creatinine 0.78 mg/dL (0.55-1.02) 03/03/24 14:40 Est GFR (MDRD) Af Amer > 60 (>60) 03/03/24 14:40 Est GFR (MDRD) Non-Af > 60 (>60) 03/03/24 14:40 Glucose 152 mg/dL (65-99) H 03/03/24 14:40 Calcium 9.1 mg/dL (8.5-10.1) 03/03/24 14:40 Corrected Calcium TNP 03/03/24 14:40 Total Bilirubin 0.60 mg/dL (0.2-1.0) 03/03/24 14:40 AST 28 Units/L (15-37) 03/03/24 14:40 ALT 25 Units/L (12-78) 03/03/24 14:40 Alkaline Phosphatase 59 Units/L (46-116) 03/03/24 14:40 Troponin I High Sens 12.1 ng/L (4.0-60.0) 03/03/24 14:40 Total Protein 6.6 g/dL (6.4-8.2) 03/03/24 14:40 Albumin 3.4 g/dL (3.4-5.0) 03/03/24 14:40 Globulin 3.2 g/dL (2.5-4.5) 03/03/24 14:40 Albumin/Globulin Ratio 1.1 Ratio (1.1-2.1) 03/03/24 14:40 Specimen Type Clean catch urine 03/03/24 14:10 Urine Color Yellow (YELLOW) 03/03/24 14:10 Urine Appearance Clear (CLEAR) 03/03/24 14:10 Urine pH 6.0 (5.0 - 8.0) 03/03/24 14:10 Ur Specific [place] 1.015 (1.000-1.030) 03/03/24 14:10 Urine Protein 1+ (NEGATIVE) 03/03/24 14:10 Urine Glucose (UA) 4+ (NEGATIVE) 03/03/24 14:10 Urine Ketones Negative (NEGATIVE) 03/03/24 14:10 Urine Blood Negative (NEGATIVE) 03/03/24 14:10 Urine Nitrite Negative (NEGATIVE) 03/03/24 14:10 Urine Bilirubin Negative (NEGATIVE) 03/03/24 14:10 Urine Urobilinogen Normal (NORMAL) 03/03/24 14:10 Ur Leukocyte Esterase Negative (NEGATIVE) 03/03/24 14:10 Urine RBC None seen /HPF (0-3) 03/03/24 14:10 Urine WBC None seen /HPF (0-5) 03/03/24 14:10 Ur Squamous Epith Cells Rare /HPF (NEGATIVE) 03/03/24 14:10 Urine Bacteria Negative /HPF (NEGATIVE) 03/03/24 14:10 Ur Culture Indicated? No/not indicated 03/03/24 14:10 SARS-CoV-2 (PCR) Negative (NEGATIVE) 03/03/24 14:08 Influenza Type A (PCR) Negative (NEGATIVE) 03/03/24 14:08 Influenza Type B (PCR) Negative (NEGATIVE) 03/03/24 14:08 RSV (PCR) Negative (NEGATIVE) 03/03/24 14:08 XRAY X-ray Results: cxr nad ct nad EKG Rhythm: NSR Block: None ST: Normal Opioid Opioid Risk Tool Age (Kunal box if 16-45): No History of Preadolescent Sexual Abuse: No Total: 0 Total Score Risk Category: Low Risk Copyright: Nayan DUNN predicting aberrant behaviors Discharge Plan Diagnosis Discharge Problem: Failure to thrive Discharge Plan Patient Disposition: 09 ADMITTED INPATIENT Condition: Stable Prescription drug monitoring program results: PDMP reviewed and no concerns identified
[2024-03-03 14:23] LABS: BILIRUBIN,URINE NEGATIVE (NEGATIVE); BLOOD/HEMOGLOBIN,URINE NEGATIVE (NEGATIVE); GLUCOSE, URINE 4+ (NEGATIVE); KETONES,URINE NEGATIVE (NEGATIVE); LEUKOCYTE ESTERASE ,URINE NEGATIVE (NEGATIVE); NITRITES,URINE NEGATIVE (NEGATIVE); PROTEIN,URINE 1+ (NEGATIVE); UROBILINOGEN,URINE NORMAL (NORMAL)
[2024-03-03 14:32] LABS: APPEARANCE,URINE CLEAR (CLEAR); COLOR,URINE YELLOW (YELLOW)
[2024-03-03 14:33] LABS: BACTERIA,URINE NEGATIVE /HPF (NEGATIVE); RBC,URINE NONE SEEN /HPF (0-3); SQUAMOUS EPITHELIAL CELL,UR RARE /HPF (NEGATIVE)
--- NOTE | 2024-03-03 14:45 | RAD ---
EXAM: CHEST, 1 VIEW HISTORY: COUGH; COMPARISON: Prior study or studies were utilized for comparison during interpretation with the most relevant elvis ed 01/20/2024 TECHNIQUE: CHEST, 1 VIEW FINDINGS: Chest: Lines and tubes: Cardiac leads overlie the chest. Mediastinum: Cardiac and mediastinal shadow is within normal limits for size and contour. Pulmonary vessels: No pulmonary vascular congestion. Lung capone: No suspicious airspace opacity. Pleura: No effusion. No pneumothorax. Bones and soft tissues: No acute osseous or soft tissue abnormality. IMPRESSION: 1. No acute cardiopulmonary abnormality THIS IS AN ELECTRONICALLY VERIFIED FINAL REPORT 03/03/2024 2:42 PM - Electronically signed by Kenyon Castro MD
--- NOTE | 2024-03-03 14:56 | EKG ---
Test Reason : weak Blood Pressure : */* mmHG Vent. Rate : 68 BPM Atrial Rate : 68 BPM P-R Int : 176 ms QRS Dur : 82 ms QT Int : 440 ms P-R-T Axes : 55 30 62 degrees QTc Int : 467 ms Normal sinus rhythm Nonspecific T wave abnormality Abnormal ECG When compared with ECG of 20-JAN-2024 14:41, No significant change was found Confirmed by Gm Blount MD ([id number]) on 03/04/2024 7:38:54 AM Referred By: Confirmed By: Gm Blount MD
[2024-03-03 14:57] LABS: BASOPHILS # (AUTO) 0.1 X10^3/uL (0.0-0.1); BASOPHILS % (AUTO) 0.7 % (0.2-1.0); EOSINOPHILS % (AUTO) 0.2 % (0.9-2.9); HEMOGLOBIN 14.3 g/dL (12.0-16.0); LYMPHOCYTES # (AUTO) 2.1 X10^3/uL (1.3-2.9); LYMPHOCYTES % (AUTO) 24.6 % (21.0-51.0); MEAN CORPUSCULAR HEMOGLOBIN 33.6 pg (27.0-34.0); MEAN CORPUSCULAR HGB CONC 34.1 g/dL (33.0-35.0); MEAN CORPUSCULAR VOLUME 98.8 fL (80.0-100.0); MEAN PLATELET VOLUME 8.3 fL (7.4-11.0); MONOCYTES # (AUTO) 0.6 x10^3/uL (0.3-0.8); MONOCYTES % (AUTO) 7.1 % (0.0-13.0); NEUTROPHILS # (AUTO) 5.9 x10^3/uL (2.2-4.8); NEUTROPHILS % (AUTO) 67.4 % (42.0-75.0); PLATELET COUNT 223 X10^3/uL (150.0-450.0); RED BLOOD COUNT 4.25 X10^6/uL (3.5-5.4); RED CELL DISTRIBUTION WIDTH 12.9 % (11.6-16.5); WHITE BLOOD COUNT 8.7 X10^3/uL (3.6-10.0)
--- NOTE | 2024-03-03 15:07 | CT ---
EXAM:HEAD (TRAUMA)HISTORY:Head trauma, tremors, weaknessTECHNIQUE:Axial noncontrast images with coronal and sagittal reformats. Dose reduction procedures were used with mA/kv adjusted for body size.COMPARISON:NoneFINDINGS:Ventricles, cortical sulci, and other CSF spaces are enlarged consistent with generalized atrophy likely age-related. There is decreased attenuation in the periventricular white matter suggestive of small-vessel vascular disease. There are no focal areas of abnormal attenuation to suggest recent or remote CVA, hemorrhage, or mass lesion or extra-axial fluid collection. Visualized sinuses are clear. The calvarium is intact.IMPRESSION:No acute intracranial abnormality identifiedGeneralized atrophy likely age-relatedDiffuse small-vessel vascular diseaseTHIS IS AN ELECTRONICALLY VERIFIED FINAL REPORT03/03/2024 2:57 PM - Electronically signed by Juan Bailey MD
[2024-03-03 15:14] LABS: ALANINE AMINOTRANSFERASE 25 Units/L (12-78); ALBUMIN 3.4 g/dL (3.4-5.0); ALKALINE PHOSPHATASE 59 Units/L (46-116); ASPARTATE AMINO TRANSFERASE 28 Units/L (15-37); BLOOD UREA NITROGEN 13 mg/dL (7-18); CALCIUM 9.1 mg/dL (8.5-10.1); CARBON DIOXIDE 29.4 mmol/L (21-32); CHLORIDE 105 mmol/L (98-107); COR NA(FOR HYPERGLY) 144 mmol/L (136-145); CREATININE 0.78 mg/dL (0.55-1.02); GLUCOSE 152 mg/dL (65-99); POTASSIUM 3.5 mmol/L (3.5-5.1); SODIUM 143 mmol/L (136-145); TOTAL PROTEIN 6.6 g/dL (6.4-8.2); eGFR NON BLACK RACES > 60 (>60)
[2024-03-03] MEDS: CATAPRES TAB 0.2 MG PO ONE (17:29)
[2024-03-03] MEDS: NS 1,000 ML IV 1,000 ML IV SCH (19:37)
[2024-03-03] MEDS: SNACK - Diabetic Appropriate PO SCH (20:43)
[2024-03-03] MEDS: RAZADYNE ER PO SCH (21:03)
[2024-03-03] MEDS: EXELON PO SCH (21:37)
[2024-03-03] MEDS: NEURONTIN CAP 300 MG PO SCH (21:37)
[2024-03-03] MEDS: BETAPACE AF PO SCH (21:37)
[2024-03-03] MEDS: ELIQUIS PO SCH (21:38)
[2024-03-03] MEDS: REGLAN TAB 10 MG PO SCH (21:38)
[2024-03-03] MEDS: CARDIZEM TAB 30 MG PLAIN PO SCH (21:38)
[2024-03-03] MEDS: PROTONIX TAB 40 MG PO SCH (21:38)
[2024-03-03] MEDS: VALIUM PO PRN (21:39)
[2024-03-03] MEDS: CARAFATE PO SCH (21:41)
[2024-03-03] MEDS: NORCO 7.5/325 MG TAB PO PRN (22:46)
[2024-03-04] MEDS: ZANAFLEX PO PRN (02:31)
[2024-03-04] MEDS: SYNTHROID 88 mcg TAB PO SCH (06:10)
[2024-03-04] MEDS: AMARYL TAB 4 MG PO SCH (06:13)
--- NOTE | 2024-03-04 09:34 | DR.H&P ---
H&P History & Physical for Day of: H&P Date: 03/04/24 Chief Complaint Chief Complaint: Failure to thrive Allergies Allergies Allergy/AdvReac Type Severity Reaction Status Date / Time codeine Allergy Unknown Verified 03/03/24 17:08 sulfamethoxazole Allergy Unknown Verified 03/03/24 17:08 diclofenac [From Voltaren] Allergy Verified 03/03/24 17:08 History of Present Illness History of Present Illness: Patient is a 78-year-old female with a past medical history of hypertension, hypothyroidism, type 2 diabetes mellitus, anxiety, essential tremor, presenting with generalized weakness. She reports that she sometimes feels dizzy at times and does not get regular meals sometimes. She is inquiring about possible assisted living care. She denies any other symptoms. Labs/imaging: WBC 8.7, hemoglobin 14.3, platelets 223, sodium 143, potassium 3.5, creatinine 0.78, glucose 152, UA negative, COVID/RSV/flu negative, CT of the head was obtained that revealed no acute intracranial abnormalities, chest x-ray revealed no acute cardiopulmonary findings. Patient was admitted for failure to thrive. We will inquire about possible placement options after discussion with patient and family on their desires. Order physical therapy, continue IVF. Restart home medications. Continue to monitor and follow up labs in the morning. Past Medical History Past Medical History: Anxiety, Asthma, Depression, Diabetes, Dyslipidemia, Hypertension, Hypothyroidism and Kidney Stones Past Surgical History Surgical History: Appendectomy, , Cholecystectomy, Hysterectomy and Tonsillectomy Family History Family Medical History: Diabetes Mellitus, Cancer, [place], Sudden Cardiac and Hypertension Social History Does patient currently use any type of tobacco product: No Have you used tobacco products in the last 12 months: No Type of Tobacco Use: None Does any household member use tobacco: No Alcohol Use: None Drug Use: None Medications Home Medications: Home Medications Medication Instructions Recorded Confirmed Type apixaban 5 mg tablet (Eliquis) 5 mg PO BID 03/03/24 03/03/24 History atorvastatin 20 mg tablet 20 mg PO QDAY 03/03/24 03/03/24 History cariprazine 1.5 mg capsule 1.5 mg PO QDAY 03/03/24 03/03/24 History (Vraylar) clonidine HCl 0.1 mg tablet 0.1 mg PO QDAY 03/03/24 03/03/24 History diazepam 2 mg tablet 2 mg PO TID 03/03/24 03/03/24 History diltiazem HCl 30 mg tablet 30 mg PO TID 03/03/24 03/03/24 History escitalopram oxalate 10 mg tablet 15 mg PO DAILY DEPRESSIVE DISORDER 03/03/24 03/03/24 History gabapentin 300 mg capsule 300 mg PO BID 03/03/24 03/03/24 History galantamine 4 mg tablet 4 mg PO BID 03/03/24 03/03/24 History glimepiride 2 mg tablet 2 mg PO QDAY 03/03/24 03/03/24 History hydrocodone 7.5 mg-acetaminophen 1 tab PO TID PRN 03/03/24 03/03/24 History 325 mg tablet levothyroxine 88 mcg tablet 88 mcg PO QDAY 03/03/24 03/03/24 History metoclopramide HCl 10 mg tablet 10 mg PO QID 03/03/24 03/03/24 History pantoprazole 40 mg tablet,delayed 40 mg PO BID 03/03/24 03/03/24 History release rivastigmine tartrate 3 mg capsule 3 mg PO BID 03/03/24 03/03/24 History sotalol 80 mg tablet 80 mg PO BID 03/03/24 03/03/24 History spironolactone 25 mg tablet 25 mg PO QDAY 03/03/24 03/03/24 History sucralfate 1 gram tablet 1 g PO QID 03/03/24 03/03/24 History tizanidine 2 mg tablet 2 mg PO TID 03/03/24 03/03/24 History Labs 03/03/24 14:40 03/03/24 14:40 Labs: Laboratory WBC 8.7 X10^3/uL (3.6-10.0) 03/03/24 14:40 RBC 4.25 X10^6/uL (3.5-5.4) 03/03/24 14:40 Hgb 14.3 g/dL (12.0-16.0) 03/03/24 14:40 Hct 42.0 % (36.0-47.0) 03/03/24 14:40 MCV 98.8 fL (80.0-100.0) 03/03/24 14:40 MCH 33.6 pg (27.0-34.0) 03/03/24 14:40 MCHC 34.1 g/dL (33.0-35.0) 03/03/24 14:40 RDW 12.9 % (11.6-16.5) 03/03/24 14:40 Plt Count 223 X10^3/uL (150.0-450.0) 03/03/24 14:40 MPV 8.3 fL (7.4-11.0) 03/03/24 14:40 Neut % (Auto) 67.4 % (42.0-75.0) 03/03/24 14:40 Lymph % (Auto) 24.6 % (21.0-51.0) 03/03/24 14:40 [place] % (Auto) 7.1 % (0.0-13.0) 03/03/24 14:40 Eos % (Auto) 0.2 % (0.9-2.9) L 03/03/24 14:40 Baso % (Auto) 0.7 % (0.2-1.0) 03/03/24 14:40 Neut # (Auto) 5.9 x10^3/uL (2.2-4.8) H 03/03/24 14:40 Lymph # (Auto) 2.1 X10^3/uL (1.3-2.9) 03/03/24 14:40 [place] # (Auto) 0.6 x10^3/uL (0.3-0.8) 03/03/24 14:40 Eos # (Auto) 0.0 x10^3/uL (0.0-0.2) 03/03/24 14:40 Baso # (Auto) 0.1 X10^3/uL (0.0-0.1) 03/03/24 14:40 Absolute Nucleated RBC 0.0 /100WBC 03/03/24 14:40 Sodium 143 mmol/L (136-145) 03/03/24 14:40 Corrected Sodium 144 mmol/L (136-145) 03/03/24 14:40 Potassium 3.5 mmol/L (3.5-5.1) 03/03/24 14:40 Chloride 105 mmol/L (98-107) 03/03/24 14:40 Carbon Dioxide 29.4 mmol/L (21-32) 03/03/24 14:40 BUN 13 mg/dL (7-18) 03/03/24 14:40 Creatinine 0.78 mg/dL (0.55-1.02) 03/03/24 14:40 Est GFR (MDRD) Af Amer > 60 (>60) 03/03/24 14:40 Est GFR (MDRD) Non-Af > 60 (>60) 03/03/24 14:40 Glucose 152 mg/dL (65-99) H 03/03/24 14:40 POC Glucose (mg/dL) 131 mg/dL (65-99) H 03/04/24 05:32 Calcium 9.1 mg/dL (8.5-10.1) 03/03/24 14:40 Corrected Calcium TNP 03/03/24 14:40 Total Bilirubin 0.60 mg/dL (0.2-1.0) 03/03/24 14:40 AST 28 Units/L (15-37) 03/03/24 14:40 ALT 25 Units/L (12-78) 03/03/24 14:40 Alkaline Phosphatase 59 Units/L (46-116) 03/03/24 14:40 Troponin I High Sens 13.0 ng/L (4.0-60.0) 03/03/24 20:05 Total Protein 6.6 g/dL (6.4-8.2) 03/03/24 14:40 Albumin 3.4 g/dL (3.4-5.0) 03/03/24 14:40 Globulin 3.2 g/dL (2.5-4.5) 03/03/24 14:40 Albumin/Globulin Ratio 1.1 Ratio (1.1-2.1) 03/03/24 14:40 Specimen Type Clean catch urine 03/03/24 14:10 Urine Color Yellow (YELLOW) 03/03/24 14:10 Urine Appearance Clear (CLEAR) 03/03/24 14:10 Urine pH 6.0 (5.0 - 8.0) 03/03/24 14:10 Ur Specific [place] 1.015 (1.000-1.030) 03/03/24 14:10 Urine Protein 1+ (NEGATIVE) 03/03/24 14:10 Urine Glucose (UA) 4+ (NEGATIVE) 03/03/24 14:10 Urine Ketones Negative (NEGATIVE) 03/03/24 14:10 Urine Blood Negative (NEGATIVE) 03/03/24 14:10 Urine Nitrite Negative (NEGATIVE) 03/03/24 14:10 Urine Bilirubin Negative (NEGATIVE) 03/03/24 14:10 Urine Urobilinogen Normal (NORMAL) 03/03/24 14:10 Ur Leukocyte Esterase Negative (NEGATIVE) 03/03/24 14:10 Urine RBC None seen /HPF (0-3) 03/03/24 14:10 Urine WBC None seen /HPF (0-5) 03/03/24 14:10 Ur Squamous Epith Cells Rare /HPF (NEGATIVE) 03/03/24 14:10 Urine Bacteria Negative /HPF (NEGATIVE) 03/03/24 14:10 Ur Culture Indicated? No/not indicated 03/03/24 14:10 SARS-CoV-2 (PCR) Negative (NEGATIVE) 03/03/24 14:08 Influenza Type A (PCR) Negative (NEGATIVE) 03/03/24 14:08 Influenza Type B (PCR) Negative (NEGATIVE) 03/03/24 14:08 RSV (PCR) Negative (NEGATIVE) 03/03/24 14:08 Review of Systems Constitutional: No Symptoms Reported Eyes: No Symptoms Reported ENT: No Symptoms Reported Respiratory: No Symptoms Reported Cardiovascular: No Symptoms Reported Gastrointestinal: No Symptoms Reported Genitourinary: No Symptoms Reported Musculoskeletal: No Symptoms Reported Skin: No Symptoms Reported Neurological: No Symptoms Reported Physical Exam Vital Signs: Vital Signs Temperature 97.8 F Pulse Rate 60 Pulse Rate 58 Pulse Rate 63 Respiratory Rate 20 Respiratory Rate 18 Blood Pressure 164/73 Blood Pressure 94/50 Blood Pressure 142/67 O2 Sat by Pulse Oximetry 98 O2 Sat by Pulse Oximetry 96 O2 Sat by Pulse Oximetry 95 Oriented: Normal Eyes: Normal Ear: Normal Nose: Normal Throat: Normal Respiratory: Clear Throughout Cardiovascular: Normal : Normal Auscultation: Bowel Sounds: Normal Palpation: Normal Tenderness: Normal Skin: Decreased [place] Musculoskeletal: Normal Psychiatric: Normal Mood Description: Calm and Appropriate Affect: Normal Speech Pattern: Clear and Appropriate Assessment/Plan (1) Failure to thrive: Status: Acute (2) Major depressive disorder: Status: Acute (3) Anxiety disorder: Status: None (4) Chronic pain of both knees: Status: Chronic (5) Degeneration of intervertebral disc of cervical region: Status: Chronic (6) Atrial fibrillation with controlled ventricular response: Status: None (7) Other specified hypothyroidism: Status: Chronic (8) Type 2 diabetes mellitus with hyperlipidemia: Status: None (9) Parkinsonian tremor: Status: None Review H&P Reviewed: Yes Patient was examined?: Yes
[2024-03-04] MEDS: PATIENT'S HOME MEDICATION PO SCH (10:59)
[2024-03-04] MEDS: LIPITOR TAB 20 MG PO SCH ×2 (11:02→21:13)
[2024-03-04] MEDS ORDERED: LEXAPRO ONE (11:38)
[2024-03-04] MEDS: ALDACTONE TAB 25 MG PO SCH (12:32)
[2024-03-04] MEDS: VALIUM PO PRN (12:33)
[2024-03-04] MEDS: LEXAPRO PO SCH (12:34)
[2024-03-04] MEDS: CATAPRES TAB 0.1 MG PO SCH (12:34)
[2024-03-05] MEDS ORDERED: CATAPRES TAB 0.1 MG ONE (00:35)
[2024-03-05] MEDS: CATAPRES TAB 0.1 MG PO ONE (00:50)
[2024-03-05 05:25] LABS: BASOPHILS % (AUTO) 0.3 % (0.2-1.0); EOSINOPHILS # (AUTO) 0.1 x10^3/uL (0.0-0.2); EOSINOPHILS % (AUTO) 0.8 % (0.9-2.9); HEMATOCRIT 41.7 % (36.0-47.0); HEMOGLOBIN 14.1 g/dL (12.0-16.0); LYMPHOCYTES # (AUTO) 1.5 X10^3/uL (1.3-2.9); LYMPHOCYTES % (AUTO) 20.2 % (21.0-51.0); MEAN CORPUSCULAR HEMOGLOBIN 33.4 pg (27.0-34.0); MEAN CORPUSCULAR HGB CONC 33.8 g/dL (33.0-35.0); MEAN CORPUSCULAR VOLUME 98.8 fL (80.0-100.0); MEAN PLATELET VOLUME 8.8 fL (7.4-11.0); MONOCYTES # (AUTO) 0.5 x10^3/uL (0.3-0.8); MONOCYTES % (AUTO) 7.3 % (0.0-13.0); NEUTROPHILS # (AUTO) 5.2 x10^3/uL (2.2-4.8); NEUTROPHILS % (AUTO) 71.4 % (42.0-75.0); PLATELET COUNT 233 X10^3/uL (150.0-450.0); RED BLOOD COUNT 4.22 X10^6/uL (3.5-5.4); RED CELL DISTRIBUTION WIDTH 13.3 % (11.6-16.5); WHITE BLOOD COUNT 7.3 X10^3/uL (3.6-10.0)
[2024-03-05 05:53] LABS: ALANINE AMINOTRANSFERASE 22 Units/L (12-78); ALBUMIN 3.2 g/dL (3.4-5.0); ALKALINE PHOSPHATASE 58 Units/L (46-116); ASPARTATE AMINO TRANSFERASE 26 Units/L (15-37); BLOOD UREA NITROGEN 7 mg/dL (7-18); CALCIUM 8.5 mg/dL (8.5-10.1); CARBON DIOXIDE 30.2 mmol/L (21-32); CHLORIDE 102 mmol/L (98-107); COR CA(FOR HYPOALB) 9.1 mg/dL (8.5-10.1); COR NA(FOR HYPERGLY) 143 mmol/L (136-145); CREATININE 0.61 mg/dL (0.55-1.02); GLUCOSE 154 mg/dL (65-99); SODIUM 142 mmol/L (136-145); TOTAL PROTEIN 6.3 g/dL (6.4-8.2); eGFR NON BLACK RACES > 60 (>60)
[2024-03-05] MEDS ORDERED: LEXAPRO ONE (10:19)
[2024-03-05] MEDS: K-DUR TAB 20 MEQ PO SCH (11:04)
[2024-03-05] MEDS ORDERED: ZANAFLEX PO PRN (11:20)
--- NOTE | 2024-03-05 11:25 | PCM.PROG ---
Progress Note Progress Note for Day of Date of Exam: 03/05/24 Subjective Subjective: Patient seen at bedside, no acute events overnight. Patient was noted to be more confused this morning, refused AM medications and refused to be connected to the IV. She is more alert now. She is alert to person, time and surrounding except place. She is able to answer questions appropriately. Patient is willing to take her medications now. Daughter at bedside concerned about gabapentin and tizandine if those doses are too high. Labs/imaging reviewed -Mag 1.2 K:3.0 - UA: neg Plan: replace Mag and K as per protocol. Encouraged patient to take PO medications. Will decrease gabapentin to 100 mg BID and tizanidine to daily prn. Patient has home health services set up for generalized weakness and physical therapy. Monitor AM labs/imaging. Past Medical Family Social History Allergies: Allergies codeine Allergy (Unknown, Verified 03/03/24 17:08) Reason: Drug intolerance; Comments: causes nausea sulfamethoxazole Allergy (Unknown, Verified 03/03/24 17:08) Reason: Drug intolerance; Comments: causes nausea diclofenac [From Voltaren] Allergy (Verified 03/03/24 17:08) Vital Signs and I&O's Vital Signs: Vital Signs Temperature 98.2 F Temperature 99.2 F Pulse Rate 109 Pulse Rate 67 Respiratory Rate 18 Respiratory Rate 20 Blood Pressure 127/77 Blood Pressure 132/61 O2 Sat by Pulse Oximetry 95 O2 Sat by Pulse Oximetry 96 Intake and Output: Intake & Output 03/02/24 03/03/24 03/04/24 03/05/24 23:59 23:59 23:59 23:59 Intake Total 567 / 567 2467 / 2467 302 / 302 Output Total 500 / 500 200 / 200 Balance 67 / 67 2267 / 2267 302 / 302 Physical Exam Oriented: Time and Person Eyes: Normal Ear: Normal Nose: Normal Throat: Normal Respiratory: Generalized and Diminished Cardiovascular: Normal Auscultation: Bowel Sounds: Normal Tenderness: Normal Skin: Decreased [place] Musculoskeletal: Normal Psychiatric: Normal Mood Description: Calm and Appropriate Affect: Normal Speech Pattern: Clear and Appropriate Laboratory and Diagnostics 03/05/24 04:16 03/05/24 04:16 Labs: Laboratory WBC 7.3 X10^3/uL (3.6-10.0) 03/05/24 04:16 RBC 4.22 X10^6/uL (3.5-5.4) 03/05/24 04:16 Hgb 14.1 g/dL (12.0-16.0) 03/05/24 04:16 Hct 41.7 % (36.0-47.0) 03/05/24 04:16 MCV 98.8 fL (80.0-100.0) 03/05/24 04:16 MCH 33.4 pg (27.0-34.0) 03/05/24 04:16 MCHC 33.8 g/dL (33.0-35.0) 03/05/24 04:16 RDW 13.3 % (11.6-16.5) 03/05/24 04:16 Plt Count 233 X10^3/uL (150.0-450.0) 03/05/24 04:16 MPV 8.8 fL (7.4-11.0) 03/05/24 04:16 Neut % (Auto) 71.4 % (42.0-75.0) 03/05/24 04:16 Lymph % (Auto) 20.2 % (21.0-51.0) L 03/05/24 04:16 [place] % (Auto) 7.3 % (0.0-13.0) 03/05/24 04:16 Eos % (Auto) 0.8 % (0.9-2.9) L 03/05/24 04:16 Baso % (Auto) 0.3 % (0.2-1.0) 03/05/24 04:16 Neut # (Auto) 5.2 x10^3/uL (2.2-4.8) H 03/05/24 04:16 Lymph # (Auto) 1.5 X10^3/uL (1.3-2.9) 03/05/24 04:16 [place] # (Auto) 0.5 x10^3/uL (0.3-0.8) 03/05/24 04:16 Eos # (Auto) 0.1 x10^3/uL (0.0-0.2) 03/05/24 04:16 Baso # (Auto) 0.0 X10^3/uL (0.0-0.1) 03/05/24 04:16 Absolute Nucleated RBC 0.1 /100WBC 03/05/24 04:16 Sodium 142 mmol/L (136-145) 03/05/24 04:16 Corrected Sodium 143 mmol/L (136-145) 03/05/24 04:16 Potassium 3.0 mmol/L (3.5-5.1) L 03/05/24 04:16 Chloride 102 mmol/L (98-107) 03/05/24 04:16 Carbon Dioxide 30.2 mmol/L (21-32) 03/05/24 04:16 BUN 7 mg/dL (7-18) 03/05/24 04:16 Creatinine 0.61 mg/dL (0.55-1.02) 03/05/24 04:16 Est GFR (MDRD) Af Amer > 60 (>60) 03/05/24 04:16 Est GFR (MDRD) Non-Af > 60 (>60) 03/05/24 04:16 Glucose 154 mg/dL (65-99) H 03/05/24 04:16 POC Glucose (mg/dL) 140 mg/dL (65-99) H 03/05/24 05:39 Calcium 8.5 mg/dL (8.5-10.1) 03/05/24 04:16 Corrected Calcium 9.1 mg/dL (8.5-10.1) 03/05/24 04:16 Magnesium 1.2 mg/dL (2.0-2.9) L 03/05/24 04:16 Total Bilirubin 0.70 mg/dL (0.2-1.0) 03/05/24 04:16 AST 26 Units/L (15-37) 03/05/24 04:16 ALT 22 Units/L (12-78) 03/05/24 04:16 Alkaline Phosphatase 58 Units/L (46-116) 03/05/24 04:16 Troponin I High Sens 13.0 ng/L (4.0-60.0) 03/03/24 20:05 Total Protein 6.3 g/dL (6.4-8.2) L 03/05/24 04:16 Albumin 3.2 g/dL (3.4-5.0) L 03/05/24 04:16 Globulin 3.1 g/dL (2.5-4.5) 03/05/24 04:16 Albumin/Globulin Ratio 1.0 Ratio (1.1-2.1) L 03/05/24 04:16 Specimen Type Clean catch urine 03/03/24 14:10 Urine Color Yellow (YELLOW) 03/03/24 14:10 Urine Appearance Clear (CLEAR) 03/03/24 14:10 Urine pH 6.0 (5.0 - 8.0) 03/03/24 14:10 Ur Specific [place] 1.015 (1.000-1.030) 03/03/24 14:10 Urine Protein 1+ (NEGATIVE) 03/03/24 14:10 Urine Glucose (UA) 4+ (NEGATIVE) 03/03/24 14:10 Urine Ketones Negative (NEGATIVE) 03/03/24 14:10 Urine Blood Negative (NEGATIVE) 03/03/24 14:10 Urine Nitrite Negative (NEGATIVE) 03/03/24 14:10 Urine Bilirubin Negative (NEGATIVE) 03/03/24 14:10 Urine Urobilinogen Normal (NORMAL) 03/03/24 14:10 Ur Leukocyte Esterase Negative (NEGATIVE) 03/03/24 14:10 Urine RBC None seen /HPF (0-3) 03/03/24 14:10 Urine WBC None seen /HPF (0-5) 03/03/24 14:10 Ur Squamous Epith Cells Rare /HPF (NEGATIVE) 03/03/24 14:10 Urine Bacteria Negative /HPF (NEGATIVE) 03/03/24 14:10 Ur Culture Indicated? No/not indicated 03/03/24 14:10 SARS-CoV-2 (PCR) Negative (NEGATIVE) 03/03/24 14:08 Influenza Type A (PCR) Negative (NEGATIVE) 03/03/24 14:08 Influenza Type B (PCR) Negative (NEGATIVE) 03/03/24 14:08 RSV (PCR) Negative (NEGATIVE) 03/03/24 14:08 Plan (1) Hypokalemia: Status: Acute (2) Hypomagnesemia: Status: Acute (3) Failure to thrive: Status: Acute (4) Major depressive disorder: Status: Acute (5) Anxiety disorder: Status: None (6) Chronic pain of both knees: Status: Chronic (7) Degeneration of intervertebral disc of cervical region: Status: Chronic (8) Atrial fibrillation with controlled ventricular response: Status: None (9) Other specified hypothyroidism: Status: Chronic (10) Type 2 diabetes mellitus with hyperlipidemia: Status: None (11) Parkinsonian tremor: Status: None
[2024-03-05] MEDS: MAGNESIUM SULFATE 1 GRAM/100 mL PREMIX 1 G/100 ML BAG IV SCH (11:40)
[2024-03-05] MEDS: CONSULT PHARMACY - POTASSIUM & MAGNESIUM XX SCH (12:13)
[2024-03-05] MEDS: MAG-OX TAB PO SCH (12:14)
[2024-03-05] MEDS ORDERED: MICRO K EXTEN CAP 10 MEQ PO ONE (15:47)
[2024-03-05] MEDS: MICRO K EXTEN CAP 10 MEQ PO ONE (15:50)
[2024-03-05] MEDS: NEURONTIN CAP 100 MG PO SCH (20:23)
[2024-03-06] MEDS ORDERED: NYSTATIN POWDER ONE (00:13)
[2024-03-06] MEDS: NYSTATIN POWDER TOP SCH (00:19)
[2024-03-06] MEDS: CATAPRES TAB 0.1 MG PO ONE (00:45)
[2024-03-06 05:16] LABS: BASOPHILS # (AUTO) 0.1 X10^3/uL (0.0-0.1); BASOPHILS % (AUTO) 0.6 % (0.2-1.0); EOSINOPHILS # (AUTO) 0.1 x10^3/uL (0.0-0.2); EOSINOPHILS % (AUTO) 1.1 % (0.9-2.9); HEMATOCRIT 37.3 % (36.0-47.0); HEMOGLOBIN 12.8 g/dL (12.0-16.0); LYMPHOCYTES % (AUTO) 24.2 % (21.0-51.0); MEAN CORPUSCULAR HEMOGLOBIN 33.8 pg (27.0-34.0); MEAN CORPUSCULAR HGB CONC 34.2 g/dL (33.0-35.0); MEAN CORPUSCULAR VOLUME 98.8 fL (80.0-100.0); MEAN PLATELET VOLUME 8.5 fL (7.4-11.0); MONOCYTES # (AUTO) 0.7 x10^3/uL (0.3-0.8); MONOCYTES % (AUTO) 8.2 % (0.0-13.0); NEUTROPHILS # (AUTO) 5.5 x10^3/uL (2.2-4.8); NEUTROPHILS % (AUTO) 65.9 % (42.0-75.0); PLATELET COUNT 200 X10^3/uL (150.0-450.0); RED BLOOD COUNT 3.78 X10^6/uL (3.5-5.4); RED CELL DISTRIBUTION WIDTH 13.2 % (11.6-16.5); WHITE BLOOD COUNT 8.4 X10^3/uL (3.6-10.0)
[2024-03-06 05:39] LABS: ALANINE AMINOTRANSFERASE 26 Units/L (12-78); ALBUMIN 2.7 g/dL (3.4-5.0); ALKALINE PHOSPHATASE 50 Units/L (46-116); ASPARTATE AMINO TRANSFERASE 22 Units/L (15-37); BLOOD UREA NITROGEN 8 mg/dL (7-18); CALCIUM 7.8 mg/dL (8.5-10.1); CARBON DIOXIDE 28.2 mmol/L (21-32); CHLORIDE 104 mmol/L (98-107); COR CA(FOR HYPOALB) 8.8 mg/dL (8.5-10.1); COR NA(FOR HYPERGLY) 141 mmol/L (136-145); CREATININE 0.65 mg/dL (0.55-1.02); GLUCOSE 138 mg/dL (65-99); POTASSIUM 3.5 mmol/L (3.5-5.1); SODIUM 140 mmol/L (136-145); TOTAL PROTEIN 5.4 g/dL (6.4-8.2); eGFR NON BLACK RACES > 60 (>60)
[2024-03-06] MEDS ORDERED: CONSULT PHARMACY - POTASSIUM & MAGNESIUM XX SCH (06:00)
[2024-03-06] MEDS ORDERED: LEXAPRO ONE (08:35)
[2024-03-06 08:37] VITALS: PULSE 88; TEMP 98.3
[2024-03-06] MEDS: K-DUR TAB 20 MEQ PO SCH (09:18)
[2024-03-06] MEDS: MAG-OX TAB PO SCH (09:20)
[2024-03-06] MEDS: LEXAPRO ONE (10:26)
[2024-03-06 11:14] VITALS: BP 163/63; RESP 20; O2SAT 95
--- NOTE | 2024-03-08 11:26 | W.DIS.FURT ---
Summary of Discharge Discharge Summary of Date Date of Exam: 03/06/24 Admission Date Date of Admission: 03/03/24 Admission Diagnosis Patient Problems (Updated 03/05/24 @ 11:24 by Ying Paris) Failure to thrive (Acute) Hospital Course: Patient is a 78-year-old female with a past medical history of hypertension, hypothyroidism, type 2 diabetes mellitus, anxiety, essential tremor, presenting with generalized weakness. She presented with confusion and dizziness. In the ER, UA was negative, COVID, RSV and flu were negative. CT brain did not show any acute abnormalities. Chest x-ray was also negative. Patient was admitted for generalized weakness and confusion patient was started on IV fluids. Patient does take several medications including opioids, benzodiazepines, muscle relaxer and gabapentin. Patient's confusion likely due to combination of medications. Staff noticed that when patient took her gabapentin and tizanidine together, was noted to be more confused in the morning. Her labs were monitored daily and electrolytes replaced as needed. Her gabapentin was decreased to 100 mg twice daily and tizanidine was stopped. This was discussed with family in detail. Patient was alert and oriented. She will be going home with home health services for physical therapy. She was stable for discharge. She will follow-up with PCP as scheduled. Vital Signs: Vital Signs (72 hours) 03/03/24 13:13 03/03/24 17:34 03/03/24 17:37 Temperature 98.0 F 98.1 F Pulse Rate 78 Pulse Rate [Left] 72 Respiratory Rate 20 16 Blood Pressure 124/74 Blood Pressure [Left Arm] 201/89 191/72 Blood Pressure [Right Arm] O2 Sat by Pulse Oximetry 96 97 Oxygen Delivery Method Room Air Room Air 03/03/24 18:11 03/03/24 18:25 03/03/24 22:46 Temperature 97.4 F L Pulse Rate Pulse Rate [Left] 74 Respiratory Rate 20 17 Blood Pressure 150/70 Blood Pressure [Left Arm] Blood Pressure [Right Arm] 148/68 O2 Sat by Pulse Oximetry 95 Oxygen Delivery Method Room Air 03/03/24 19:00 03/03/24 23:46 03/03/24 19:00 Temperature Pulse Rate Pulse Rate [Left] Respiratory Rate 20 Blood Pressure Blood Pressure [Left Arm] Blood Pressure [Right Arm] O2 Sat by Pulse Oximetry Oxygen Delivery Method Room Air Room Air 03/03/24 18:35 03/03/24 20:11 03/04/24 00:00 Temperature 97.6 F 98.9 F Pulse Rate 75 73 Pulse Rate [Left] Respiratory Rate 18 17 Blood Pressure 148/68 127/58 Blood Pressure [Left Arm] Blood Pressure [Right Arm] O2 Sat by Pulse Oximetry 97 97 Oxygen Delivery Method Room Air Room Air 03/04/24 02:00 03/04/24 04:00 03/04/24 06:06 Temperature 97.8 F Pulse Rate 63 58 L 60 Pulse Rate [Left] Respiratory Rate 18 Blood Pressure 142/67 94/50 164/73 Blood Pressure [Left Arm] Blood Pressure [Right Arm] O2 Sat by Pulse Oximetry 95 96 98 Oxygen Delivery Method Room Air 03/04/24 07:45 03/04/24 16:32 03/04/24 19:00 Temperature 97.8 F Pulse Rate 65 Pulse Rate [Left] Respiratory Rate 20 20 Blood Pressure 141/65 Blood Pressure [Left Arm] Blood Pressure [Right Arm] O2 Sat by Pulse Oximetry 95 Oxygen Delivery Method Room Air Room Air 03/04/24 20:00 03/04/24 07:00 03/04/24 12:00 Temperature 97.8 F 97.7 F 97.7 F Pulse Rate 103 H 63 77 Pulse Rate [Left] Respiratory Rate 20 20 20 Blood Pressure 168/74 146/67 161/75 Blood Pressure [Left Arm] Blood Pressure [Right Arm] O2 Sat by Pulse Oximetry 95 96 97 Oxygen Delivery Method Room Air Room Air Room Air 03/04/24 21:14 03/05/24 00:00 03/05/24 00:48 Temperature 98.0 F Pulse Rate 74 Pulse Rate [Left] Respiratory Rate 20 20 Blood Pressure 198/89 Blood Pressure [Left Arm] Blood Pressure [Right Arm] 204/88 O2 Sat by Pulse Oximetry 96 Oxygen Delivery Method Room Air 03/05/24 00:58 03/05/24 01:08 03/05/24 01:10 Temperature Pulse Rate Pulse Rate [Left] Respiratory Rate Blood Pressure Blood Pressure [Left Arm] Blood Pressure [Right Arm] 215/95 204/94 182/83 O2 Sat by Pulse Oximetry Oxygen Delivery Method 03/05/24 01:20 03/05/24 01:30 03/05/24 01:40 Temperature Pulse Rate Pulse Rate [Left] Respiratory Rate Blood Pressure Blood Pressure [Left Arm] Blood Pressure [Right Arm] 170/81 186/85 179/82 O2 Sat by Pulse Oximetry Oxygen Delivery Method 03/05/24 01:50 03/05/24 02:00 03/05/24 02:10 Temperature Pulse Rate Pulse Rate [Left] Respiratory Rate Blood Pressure Blood Pressure [Left Arm] Blood Pressure [Right Arm] 162/71 181/84 190/92 O2 Sat by Pulse Oximetry Oxygen Delivery Method 03/05/24 02:20 03/05/24 02:30 03/05/24 02:40 Temperature Pulse Rate Pulse Rate [Left] Respiratory Rate Blood Pressure Blood Pressure [Left Arm] Blood Pressure [Right Arm] 169/80 144/70 133/74 O2 Sat by Pulse Oximetry Oxygen Delivery Method 03/05/24 04:00 03/04/24 22:14 03/05/24 08:00 Temperature 99.2 F 98.2 F Pulse Rate 67 109 H Pulse Rate [Left] Respiratory Rate 20 20 18 Blood Pressure 132/61 127/77 Blood Pressure [Left Arm] Blood Pressure [Right Arm] O2 Sat by Pulse Oximetry 96 95 Oxygen Delivery Method Room Air Room Air 03/05/24 13:06 03/05/24 14:06 03/05/24 08:40 Temperature Pulse Rate 112 H Pulse Rate [Left] Respiratory Rate 18 16 Blood Pressure Blood Pressure [Left Arm] Blood Pressure [Right Arm] O2 Sat by Pulse Oximetry 95 Oxygen Delivery Method 03/05/24 08:41 03/05/24 08:41 03/05/24 09:00 Temperature Pulse Rate 109 H 76 Pulse Rate [Left] Respiratory Rate Blood Pressure 156/96 Blood Pressure [Left Arm] Blood Pressure [Right Arm] O2 Sat by Pulse Oximetry 95 95 Oxygen Delivery Method 03/05/24 09:11 03/05/24 09:58 03/05/24 09:58 Temperature Pulse Rate 104 H Pulse Rate [Left] Respiratory Rate Blood Pressure 127/77 127/77 Blood Pressure [Left Arm] Blood Pressure [Right Arm] O2 Sat by Pulse Oximetry 86 L Oxygen Delivery Method 03/05/24 13:03 03/05/24 13:04 03/05/24 13:04 Temperature 97.9 F Pulse Rate 82 82 Pulse Rate [Left] Respiratory Rate Blood Pressure 132/63 Blood Pressure [Left Arm] Blood Pressure [Right Arm] O2 Sat by Pulse Oximetry 96 96 Oxygen Delivery Method 03/05/24 14:00 03/05/24 15:00 03/05/24 15:51 Temperature Pulse Rate 75 75 Pulse Rate [Left] Respiratory Rate 29 H Blood Pressure 84/53 Blood Pressure [Left Arm] Blood Pressure [Right Arm] O2 Sat by Pulse Oximetry 96 95 Oxygen Delivery Method 03/05/24 15:51 03/05/24 15:51 03/05/24 16:00 Temperature 97.3 F L Pulse Rate 68 67 Pulse Rate [Left] Respiratory Rate Blood Pressure 84/53 Blood Pressure [Left Arm] Blood Pressure [Right Arm] O2 Sat by Pulse Oximetry 93 L 93 L Oxygen Delivery Method 03/05/24 17:00 03/05/24 17:25 03/05/24 17:25 Temperature Pulse Rate 61 62 Pulse Rate [Left] Respiratory Rate Blood Pressure 108/56 Blood Pressure [Left Arm] Blood Pressure [Right Arm] O2 Sat by Pulse Oximetry 95 95 Oxygen Delivery Method 03/05/24 07:00 03/06/24 00:18 03/05/24 19:00 Temperature Pulse Rate Pulse Rate [Left] Respiratory Rate 22 Blood Pressure Blood Pressure [Left Arm] Blood Pressure [Right Arm] O2 Sat by Pulse Oximetry Oxygen Delivery Method Room Air Room Air 03/05/24 20:00 03/06/24 00:00 03/06/24 00:05 Temperature 97.9 F 98.9 F Pulse Rate 66 68 Pulse Rate [Left] Respiratory Rate 22 23 Blood Pressure 178/86 202/89 184/84 Blood Pressure [Left Arm] Blood Pressure [Right Arm] O2 Sat by Pulse Oximetry 98 98 Oxygen Delivery Method 03/06/24 00:44 03/06/24 00:54 03/06/24 01:04 Temperature Pulse Rate Pulse Rate [Left] Respiratory Rate Blood Pressure Blood Pressure [Left Arm] Blood Pressure [Right Arm] 185/86 173/81 168/81 O2 Sat by Pulse Oximetry Oxygen Delivery Method 03/06/24 01:10 03/06/24 01:20 03/06/24 01:30 Temperature Pulse Rate Pulse Rate [Left] Respiratory Rate Blood Pressure Blood Pressure [Left Arm] 146/64 Blood Pressure [Right Arm] 157/69 149/70 O2 Sat by Pulse Oximetry Oxygen Delivery Method 03/06/24 01:40 03/06/24 01:50 03/06/24 01:18 Temperature Pulse Rate Pulse Rate [Left] Respiratory Rate 16 Blood Pressure Blood Pressure [Left Arm] Blood Pressure [Right Arm] 148/67 143/67 O2 Sat by Pulse Oximetry Oxygen Delivery Method 03/06/24 04:00 03/06/24 07:00 03/06/24 08:00 Temperature 98.3 F 98.5 F 98.3 F Pulse Rate 54 L 56 L 88 Pulse Rate [Left] Respiratory Rate 24 22 21 Blood Pressure 88/53 93/56 102/58 Blood Pressure [Left Arm] Blood Pressure [Right Arm] O2 Sat by Pulse Oximetry 93 L 92 L 92 L Oxygen Delivery Method Room Air 03/06/24 07:00 Temperature Pulse Rate Pulse Rate [Left] Respiratory Rate Blood Pressure Blood Pressure [Left Arm] Blood Pressure [Right Arm] O2 Sat by Pulse Oximetry Oxygen Delivery Method Room Air Labs: Laboratory Last Values WBC 8.4 X10^3/uL (3.6-10.0) 03/06/24 04:56 RBC 3.78 X10^6/uL (3.5-5.4) 03/06/24 04:56 Hgb 12.8 g/dL (12.0-16.0) 03/06/24 04:56 Hct 37.3 % (36.0-47.0) 03/06/24 04:56 MCV 98.8 fL (80.0-100.0) 03/06/24 04:56 MCH 33.8 pg (27.0-34.0) 03/06/24 04:56 MCHC 34.2 g/dL (33.0-35.0) 03/06/24 04:56 RDW 13.2 % (11.6-16.5) 03/06/24 04:56 Plt Count 200 X10^3/uL (150.0-450.0) 03/06/24 04:56 MPV 8.5 fL (7.4-11.0) 03/06/24 04:56 Neut % (Auto) 65.9 % (42.0-75.0) 03/06/24 04:56 Lymph % (Auto) 24.2 % (21.0-51.0) 03/06/24 04:56 [place] % (Auto) 8.2 % (0.0-13.0) 03/06/24 04:56 Eos % (Auto) 1.1 % (0.9-2.9) 03/06/24 04:56 Baso % (Auto) 0.6 % (0.2-1.0) 03/06/24 04:56 Neut # (Auto) 5.5 x10^3/uL (2.2-4.8) H 03/06/24 04:56 Lymph # (Auto) 2.0 X10^3/uL (1.3-2.9) 03/06/24 04:56 [place] # (Auto) 0.7 x10^3/uL (0.3-0.8) 03/06/24 04:56 Eos # (Auto) 0.1 x10^3/uL (0.0-0.2) 03/06/24 04:56 Baso # (Auto) 0.1 X10^3/uL (0.0-0.1) 03/06/24 04:56 Absolute Nucleated RBC 0.1 /100WBC 03/06/24 04:56 Sodium 140 mmol/L (136-145) 03/06/24 04:56 Corrected Sodium 141 mmol/L (136-145) 03/06/24 04:56 Potassium 3.5 mmol/L (3.5-5.1) 03/06/24 04:56 Chloride 104 mmol/L (98-107) 03/06/24 04:56 Carbon Dioxide 28.2 mmol/L (21-32) 03/06/24 04:56 BUN 8 mg/dL (7-18) 03/06/24 04:56 Creatinine 0.65 mg/dL (0.55-1.02) 03/06/24 04:56 Est GFR (MDRD) Af Amer > 60 (>60) 03/06/24 04:56 Est GFR (MDRD) Non-Af > 60 (>60) 03/06/24 04:56 Glucose 138 mg/dL (65-99) H 03/06/24 04:56 POC Glucose (mg/dL) 141 mg/dL (65-99) H 03/06/24 06:03 Calcium 7.8 mg/dL (8.5-10.1) L 03/06/24 04:56 Corrected Calcium 8.8 mg/dL (8.5-10.1) 03/06/24 04:56 Magnesium 1.8 mg/dL (2.0-2.9) L 03/06/24 04:56 Total Bilirubin 0.50 mg/dL (0.2-1.0) 03/06/24 04:56 AST 22 Units/L (15-37) 03/06/24 04:56 ALT 26 Units/L (12-78) 03/06/24 04:56 Alkaline Phosphatase 50 Units/L (46-116) 03/06/24 04:56 Troponin I High Sens 13.0 ng/L (4.0-60.0) 03/03/24 20:05 Total Protein 5.4 g/dL (6.4-8.2) L 03/06/24 04:56 Albumin 2.7 g/dL (3.4-5.0) L 03/06/24 04:56 Globulin 2.7 g/dL (2.5-4.5) 03/06/24 04:56 Albumin/Globulin Ratio 1.0 Ratio (1.1-2.1) L 03/06/24 04:56 Specimen Type Clean catch urine 03/03/24 14:10 Urine Color Yellow (YELLOW) 03/03/24 14:10 Urine Appearance Clear (CLEAR) 03/03/24 14:10 Urine pH 6.0 (5.0 - 8.0) 03/03/24 14:10 Ur Specific [place] 1.015 (1.000-1.030) 03/03/24 14:10 Urine Protein 1+ (NEGATIVE) 03/03/24 14:10 Urine Glucose (UA) 4+ (NEGATIVE) 03/03/24 14:10 Urine Ketones Negative (NEGATIVE) 03/03/24 14:10 Urine Blood Negative (NEGATIVE) 03/03/24 14:10 Urine Nitrite Negative (NEGATIVE) 03/03/24 14:10 Urine Bilirubin Negative (NEGATIVE) 03/03/24 14:10 Urine Urobilinogen Normal (NORMAL) 03/03/24 14:10 Ur Leukocyte Esterase Negative (NEGATIVE) 03/03/24 14:10 Urine RBC None seen /HPF (0-3) 03/03/24 14:10 Urine WBC None seen /HPF (0-5) 03/03/24 14:10 Ur Squamous Epith Cells Rare /HPF (NEGATIVE) 03/03/24 14:10 Urine Bacteria Negative /HPF (NEGATIVE) 03/03/24 14:10 Ur Culture Indicated? No/not indicated 03/03/24 14:10 SARS-CoV-2 (PCR) Negative (NEGATIVE) 03/03/24 14:08 Influenza Type A (PCR) Negative (NEGATIVE) 03/03/24 14:08 Influenza Type B (PCR) Negative (NEGATIVE) 03/03/24 14:08 RSV (PCR) Negative (NEGATIVE) 03/03/24 14:08 Reason For Visit: FAILURE TO THRIVE Discharge Diagnosis All Active Problems (Updated 03/05/24 @ :24 by Ying Paris) Hypomagnesemia (Acute) Hypokalemia (Acute) Failure to thrive (Acute) Major depressive disorder (Acute) Abdominal pain (Acute) Chest pain (Acute) Bad odor of urine (Acute) Rhinosinusitis (Acute) Episode of shaking (Acute) Hypertension (Acute) Pustule (Acute) Pain in posterior left lower extremity (Acute) Adverse effect of oral hypoglycemic drug (Acute) Constipation due to slow transit (Acute) Diabetic gastroparesis associated with type 2 diabetes mellitus (Acute) Encounter for administration of vaccine (Acute) UTI (urinary tract infection), bacterial (Acute) Recent urinary tract infection (Acute) Insect bite or sting (Acute) Rhinosinusitis (Acute) Watery stools (Acute) History of diverticulosis (Chronic) Gastroesophageal reflux disease with esophagitis (Chronic) Chronic renal insufficiency (Chronic) Abdominal pain of unknown etiology (Acute) Neck and shoulder pain (Chronic) Vasomotor instability (Chronic) Chronic pain of both knees (Chronic) Degeneration of intervertebral disc of cervical region (Chronic) History of warfarin therapy (Chronic) Benign essential hypertension with target blood pressure below 140/90 (Chronic) 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 Pt is to keep follow up appointment as instructed and take medications as ordered. Discharge Medications Discharge Medications: codeine Allergy (Unknown, Verified 03/03/24 17:08) sulfamethoxazole Allergy (Unknown, Verified 03/03/24 17:08) diclofenac [From Voltaren] Allergy (Verified 03/03/24 17:08) CONTINUE taking the following medications apixaban 5 mg tablet (Eliquis) 5 mg PO BID 03/03/24 [History] atorvastatin 20 mg tablet 20 mg PO QDAY 03/03/24 [History] cariprazine 1.5 mg capsule (Vraylar) 1.5 mg PO QDAY 03/03/24 [History] clonidine HCl 0.1 mg tablet 0.1 mg PO QDAY 03/03/24 [History] diazepam 2 mg tablet 2 mg PO TID 03/03/24 [History] diltiazem HCl 30 mg tablet 30 mg PO TID 03/03/24 [History] escitalopram oxalate 10 mg tablet 15 mg PO DAILY DEPRESSIVE DISORDER 03/03/24 [History] galantamine 4 mg tablet 4 mg PO BID 03/03/24 [History] glimepiride 2 mg tablet 2 mg PO QDAY 03/03/24 [History] hydrocodone 7.5 mg-acetaminophen 325 mg tablet 1 tab PO TID PRN 03/03/24 [History] levothyroxine 88 mcg tablet 88 mcg PO QDAY 03/03/24 [History] metoclopramide HCl 10 mg tablet 10 mg PO QID 03/03/24 [History] pantoprazole 40 mg tablet,delayed release 40 mg PO BID 03/03/24 [History] rivastigmine tartrate 3 mg capsule 3 mg PO BID 03/03/24 [History] sotalol 80 mg tablet 80 mg PO BID 03/03/24 [History] spironolactone 25 mg tablet 25 mg PO QDAY 03/03/24 [History] sucralfate 1 gram tablet 1 g PO QID 03/03/24 [History] New Prescriptions gabapentin 100 mg capsule 100 mg PO BID 30 days #60 caps 03/06/24 [Rx] Discharge Disposition Discharge Disposition: Home with home health services Discharge Condition: Stable Discharge Plan Discharge Plan Hospital Course: Patient is a 78-year-old female with a past medical history of hypertension, hypothyroidism, type 2 diabetes mellitus, anxiety, essential tremor, presenting with generalized weakness. She presented with confusion and dizziness. In the ER, UA was negative, COVID, RSV and flu were negative. CT brain did not show any acute abnormalities. Chest x-ray was also negative. Patient was admitted for generalized weakness and confusion patient was started on IV fluids. Patient does take several medications including opioids, benzodiazepines, muscle relaxer and gabapentin. Patient's confusion likely due to combination of medications. Staff noticed that when patient took her gabapentin and tizanidine together, was noted to be more confused in the morning. Her labs were monitored daily and electrolytes replaced as needed. Her gabapentin was decreased to 100 mg twice daily and tizanidine was stopped. This was discussed with family in detail. Patient was alert and oriented. She will be going home with home health services for physical therapy. She was stable for discharge. She will follow-up with PCP as scheduled. Patient Disposition: HOME HEALTH SERVICE Condition: Stable Health Concerns: Post Hospitalization: new medications and changes needed to prevent readmission or further decline. Pt educated and given instructions on all concerns. Plan of Treatment: Continue with present treatment and follow up plan. Pt is to keep follow up appointment as instructed and take medications as ordered. Prescription drug monitoring program results: PDMP reviewed and no concerns identified Prescriptions: New gabapentin 100 mg Capsule 100 mg PO BID 30 Days Qty: 60 0RF Continued (DME) blood-glucose meter [Blood Glucose Monitoring] Kit See Rx Instructions .Route Qty: 1 0RF Rx Instructions: As directed for glucose monitor daily and when symptomatic. (DME) Pharmacist Choice Strip See Rx Instructions .Route Qty: 50 12RF Rx Instructions: As directed for glucose monitoring daily and when symptomatic clonidine HCl 0.1 mg tablet 0.1 mg PO QDAY atorvastatin 20 mg tablet 20 mg PO QDAY sotalol 80 mg tablet 80 mg PO BID sucralfate 1 gram tablet 1 g PO QID galantamine 4 mg tablet 4 mg PO BID spironolactone 25 mg tablet 25 mg PO QDAY glimepiride 2 mg tablet 2 mg PO QDAY levothyroxine 88 mcg tablet 88 mcg PO QDAY diazepam 2 mg tablet 2 mg PO TID hydrocodone-acetaminophen 7.5-325 mg tablet 1 tab PO TID PRN pantoprazole 40 mg tablet,delayed release (DR/EC) 40 mg PO BID diltiazem HCl 30 mg tablet 30 mg PO TID rivastigmine tartrate 3 mg capsule 3 mg PO BID metoclopramide HCl 10 mg tablet 10 mg PO QID escitalopram oxalate 10 mg tablet 15 mg PO DAILY Eliquis 5 mg tablet 5 mg PO BID Vraylar 1.5 mg capsule 1.5 mg PO QDAY Discontinued tizanidine 2 mg tablet 2 mg PO TID gabapentin 300 mg capsule 300 mg PO BID Follow ups/Referrals Follow ups/Referrals: TAMMI FALK [Primary Care Provider] - 03/08/24 8:30 am Instructions Instructions: Fall Prevention in the Home, Adult, [id number], Weakness, [id number], Managing Your Hypertension Stand Alone Forms: Excuse From Work or School, Post Hospital Follow Up Care
== END 2024-03-06 12:29 | disposition home health service (06) ==
LOC: ER 13:13 → ICU 13:13
PROVIDERS: ADMIT Family Medicine; ATTEND Family Medicine

== ENCOUNTER 2025-09-13 15:42 | Observation (INO) ==
[2025-09-13 20:30] LABS: MEAN PLATELET VOLUME 7.5 fL (7.4-11.0); RED CELL DISTRIBUTION WIDTH 13.9 % (11.6-16.5)
[2025-09-13 20:40] LABS: COR NA(FOR HYPERGLY) 137 mmol/L (136-145); CREATININE 0.78 mg/dL (0.55-1.02); eGFR NON BLACK RACES > 60 (>60)
[2025-09-13] MEDS: CONSULT PHARMACY - POTASSIUM & MAGNESIUM XX SCH (22:23)
[2025-09-13] MEDS ORDERED: NS 100 ML IV 100 ML ONE (22:26)
[2025-09-13] MEDS: NS 1,000 ML IV 1,000 ML IV SCH (22:33)
[2025-09-13] MEDS: TOBRAMYCIN SULFATE 80 MG in NS 100 ML IV 98 ML IV ONE (22:33)
[2025-09-13] MEDS: TOBRAMYCIN SULFATE ONE (22:34)
[2025-09-14] MEDS: MERREM VIAL 1 G in NS 100 ML IV 100 ML IV SCH (02:24)
[2025-09-14] MEDS: PHARMACY CONSULT - MEROPENEM XX SCH (02:32)
[2025-09-14 05:49] LABS: MEAN PLATELET VOLUME 7.4 fL (7.4-11.0); RED CELL DISTRIBUTION WIDTH 14.2 % (11.6-16.5)
[2025-09-14 05:55] LABS: BLOOD/HEMOGLOBIN,URINE 1+ (NEGATIVE); LEUKOCYTE ESTERASE ,URINE 1+ (NEGATIVE); NITRITES,URINE POSITIVE (NEGATIVE)
[2025-09-14 05:56] LABS: APPEARANCE,URINE SLIGHTLY HAZY (CLEAR)
[2025-09-14 06:02] LABS: SQUAMOUS EPITHELIAL CELL,UR RARE /HPF (NEGATIVE)
[2025-09-14 06:07] LABS: COR CA(FOR HYPOALB) 9.6 mg/dL (8.5-10.1); CREATININE 0.90 mg/dL (0.55-1.02); eGFR NON BLACK RACES > 60 (>60)
--- NOTE | 2025-09-14 06:29 | RAD ---
EXAMINATION: CHEST, 1 VIEW HISTORY: AMS; . COMPARISON STUDY: Chest x-ray 03/03/2024 TECHNIQUE: Single frontal view of the chest FINDINGS: Lungs are expanded. Mild elevation right hemidiaphragm. Heart size and pulmonary vascular pattern appear normal. CP angles are sharp. Bones are intact. IMPRESSION: Mild elevation right hemidiaphragm. THIS IS AN ELECTRONICALLY VERIFIED FINAL REPORT 09/14/2025 6:26 AM - Electronically signed by Radha Lane MD
--- NOTE | 2025-09-14 08:14 | DR.H&P ---
H&P History & Physical for Day of: H&P Date: 09/13/25 Chief Complaint Chief Complaint: UTI, CONFUSION History of Present Illness History of Present Illness: PT IS 80 WF, ADMITTED WITH FAILED OUTPT THERAPY FOR UTI TAKEN PO CIPRO WITH CONTINUED INCREASED CONFUSION PER FAMILY. PT HAS HAD INDWELLING RHOADES RECENTLY. PT HAS PMH OF DM, HTN, HYPOTHYROIDIS ASTHMA AND ANXIETY. Past Medical History Past Medical History: Anxiety, Asthma, Depression, Diabetes, Dyslipidemia, Hypertension, Hypothyroidism and Kidney Stones Past Surgical History Surgical History: Appendectomy, , Hysterectomy and Tonsillectomy Family History Family Medical History: Diabetes Mellitus, Cancer and Hypertension Social History Alcohol Use: None Drug Use: None Medications Home Medications: Home Medications Medication Instructions Recorded Confirmed Type apixaban 5 mg tablet (Eliquis) 5 mg PO BID 03/03/24 History cranberry fruit concentrate 250 mg 250 mg PO DAILY 09/13/25 History chewable tablet (Azo Cranberry) diclofenac sodium 25 mg 25 mg PO DAILY PRN 09/13/25 09/13/25 History tablet,delayed release docusate sodium 50 mg capsule 50 mg PO QDAY PRN 09/13/25 History hydroxyzine pamoate 25 mg capsule 25 mg PO QHS 5 09/13/25 History (Vistaril) levothyroxine 88 mcg tablet 88 mcg PO QAM Hypothyroidi sm 09/13/25 09/13/25 History melatonin 10 mg tablet 20 mg PO QHS 09/13/25 History montelukast 10 mg tablet 10 mg PO QDAY 09/13/2509/13 History (Singulair) lstgqwng-[id number]-gbvfy ac 400 1 tab PO QHS 09/13/25 History mcg-calcium carb 500 mg-vit K1 20 mcg tablet (Women's 50 Plus Daily Formula) potassium 99 mg tablet 99 mg PO DAILY 09/13/2508/24 History Allergies Allergies Allergy/AdvReac Type Severity Reaction Status Date / Time lorazepam (From Ativan) AdvReac Severe CONFUSION Verified 09/13/25 20:53 metoclopramide (From Reglan) AdvReac Severe CONFUSION Verified 09/13/25 20:53 codeine AdvReac Mild NAUSEA Verified 09/13/25 20:53 meloxicam (From Mobic) AdvReac Mild Verified 09/13/25 20:53 sulfamethoxazole AdvReac Mild NAUSEA Verified 09/13/25 20:53 venlafaxine (From Effexor) AdvReac Mild HEADACHE Verified 09/13/25 20:53 Labs 09/14/25 05:16 09/14/25 05:16 Labs: Laboratory WBC 6.9 X10^3/uL (3.6-10.0) 09/14/25 05:16 RBC 3.91 X10^6/uL (3.5-5.4) 09/14/25 05:16 Hgb 12.2 g/dL (12.0-16.0) 09/14/25 05:16 Hct 36.3 % (36.0-47.0) 09/14/25 05:16 MCV 92.9 fL (80.0-100.0) 09/14/25 05:16 MCH 31.3 pg (27.0-34.0) 09/14/25 05:16 MCHC 33.7 g/dL (33.0-35.0) 09/14/25 05:16 RDW 14.2 % (11.6-16.5) 09/14/25 05:16 Plt Count 276 X10^3/uL (150.0-450.0) 09/14/25 05:16 MPV 7.4 fL (7.4-11.0) 09/14/25 05:16 Neut % (Auto) 43.7 % (42.0-75.0) 09/14/25 05:16 Lymph % (Auto) 46.6 % (21.0-51.0) 09/14/25 05:16 [place] % (Auto) 8.6 % (0.0-13.0) 09/14/25 05:16 Eos % (Auto) 0.7 % (0.9-2.9) L 09/14/25 05:16 Baso % (Auto) 0.4 % (0.2-1.0) 09/14/25 05:16 Neut # (Auto) 3.0 x10^3/uL (2.2-4.8) 09/14/25 05:16 Lymph # (Auto) 3.2 X10^3/uL (1.3-2.9) H 09/14/25 05:16 [place] # (Auto) 0.6 x10^3/uL (0.3-0.8) 09/14/25 05:16 Eos # (Auto) 0.0 x10^3/uL (0.0-0.2) 09/14/25 05:16 Baso # (Auto) 0.0 X10^3/uL (0.0-0.1) 09/14/25 05:16 Absolute Nucleated RBC 0.1 /100WBC 09/14/25 05:16 Sodium 142 mmol/L (136-145) 09/14/25 05:16 Corrected Sodium TNP 09/14/25 05:16 Potassium 3.9 mmol/L (3.5-5.1) 09/14/25 05:16 Chloride 103 mmol/L (98-107) 09/14/25 05:16 Carbon Dioxide 30.4 mmol/L (21-32) 09/14/25 05:16 BUN 13 mg/dL (7-18) 09/14/25 05:16 Creatinine 0.90 mg/dL (0.55-1.02) 09/14/25 05:16 Est GFR (MDRD) Af Amer > 60 (>60) 09/14/25 05:16 Est GFR (MDRD) Non-Af > 60 (>60) 09/14/25 05:16 Glucose 82 mg/dL (65-99) 09/14/25 05:16 Lactic Acid 0.9 mmol/L (0.4-2.0) 09/13/25 20:10 Calcium 9.0 mg/dL (8.5-10.1) 09/14/25 05:16 Corrected Calcium 9.6 mg/dL (8.5-10.1) 09/14/25 05:16 Total Bilirubin 0.30 mg/dL (0.2-1.0) 09/14/25 05:16 AST 15 Units/L (15-37) 09/14/25 05:16 ALT 21 Units/L (12-78) 09/14/25 05:16 Alkaline Phosphatase 75 Units/L (46-116) 09/14/25 05:16 Total Protein 6.4 g/dL (6.4-8.2) 09/14/25 05:16 Albumin 3.3 g/dL (3.4-5.0) L 09/14/25 05:16 Globulin 3.1 g/dL (2.5-4.5) 09/14/25 05:16 Albumin/Globulin Ratio 1.1 Ratio (1.1-2.1) 09/14/25 05:16 Specimen Type Catherized urine 09/14/25 05:40 Urine Color Yellow (YELLOW) 09/14/25 05:40 Urine Appearance Slightly hazy (CLEAR) 09/14/25 05:40 Urine pH 6.5 (5.0 - 8.0) 09/14/25 05:40 Ur Specific [place] 1.015 (1.000-1.030) 09/14/25 05:40 Urine Protein 1+ (NEGATIVE) 09/14/25 05:40 Urine Glucose (UA) Negative (NEGATIVE) 09/14/25 05:40 Urine Ketones Negative (NEGATIVE) 09/14/25 05:40 Urine Blood 1+ (NEGATIVE) 09/14/25 05:40 Urine Nitrite Positive (NEGATIVE) 09/14/25 05:40 Urine Bilirubin Negative (NEGATIVE) 09/14/25 05:40 Urine Urobilinogen Normal (NORMAL) 09/14/25 05:40 Ur Leukocyte Esterase 1+ (NEGATIVE) 09/14/25 05:40 Urine RBC 0-2 /HPF (0-3) 09/14/25 05:40 Urine WBC 5-10 /HPF (0-5) A 09/14/25 05:40 Ur Squamous Epith Cells Rare /HPF (NEGATIVE) 09/14/25 05:40 Ur Renal Epithelial Cell Few /HPF (NEGATIVE) 09/14/25 05:40 Amorphous Sediment 1+ /HPF (NEGATIVE) 09/14/25 05:40 Urine Bacteria 1+ /HPF (NEGATIVE) 09/14/25 05:40 Ur Culture Indicated? Yes/culture set up 09/14/25 05:40 Review of Systems Constitutional: Weakness Eyes: No Symptoms Reported ENT: No Symptoms Reported Respiratory: No Symptoms Reported Cardiovascular: No Symptoms Reported Gastrointestinal: No Symptoms Reported Genitourinary: Dysuria and Incontinence Musculoskeletal: No Symptoms Reported Skin: No Symptoms Reported Neurological: Weakness and Confusion Oriented: Normal Eyes: Normal Ear: Normal Throat: Dry Respiratory: RLL Diminished and LLL Diminished Cardiovascular: Normal; negative Tachycardia Auscultation: Bowel Sounds: Normal Palpation: Normal Tenderness: Normal Skin: Decreased [place] Musculoskeletal: Motor Deficit Psychiatric: Anxiety and Agitation Affect: Anxious Speech Pattern: Delayed Assessment/Plan (1) Urinary tract infection: Status: Acute Plan: ADMIT, UC AND BC ON ADMISSION IV HYDRATION IV ATBX BP CONTROL VERIFY HOME MEDICATIONS RHOADES CATH CARE (2) Hypertension: Qualifiers: Hypertension type: primary hypertension Qualified Code(s): I10 - Essential (primary) hypertension Status: Acute
[2025-09-14] MEDS: BETAPACE AF PO SCH (09:29)
[2025-09-14] MEDS: ELIQUIS PO SCH (09:29)
[2025-09-14] MEDS: CARAFATE PO SCH (09:30)
[2025-09-14] MEDS: SINGULAIR TAB 10 MG PO SCH (09:30)
[2025-09-14] MEDS: COLACE CAP 100 MG PO SCH (09:30)
[2025-09-14] MEDS: VALIUM PO PRN (11:53)
[2025-09-14] MEDS: NORCO 5/325 MG TAB PO PRN (12:03)
[2025-09-14] MEDS: GALANTAMINE 12 MG PO SCH (15:06)
[2025-09-14] MEDS: PYRIDIUM PO ONE (16:04)
[2025-09-14] MEDS: NS 1,000 ML IV 1,000 ML IV SCH (20:08)
[2025-09-14] MEDS: VISTARIL PO SCH (20:40)
[2025-09-15 04:55] LABS: MEAN PLATELET VOLUME 7.8 fL (7.4-11.0)
[2025-09-15 05:00] LABS: RED CELL DISTRIBUTION WIDTH 14.2 % (11.6-16.5)
[2025-09-15 05:05] LABS: COR CA(FOR HYPOALB) 9.4 mg/dL (8.5-10.1); COR NA(FOR HYPERGLY) 141 mmol/L (136-145); CREATININE 0.86 mg/dL (0.55-1.02); eGFR NON BLACK RACES > 60 (>60)
[2025-09-15] MEDS: CONSULT PHARMACY - POTASSIUM & MAGNESIUM XX SCH (05:46)
[2025-09-15] MEDS: MAG-OX TAB PO SCH (09:19)
[2025-09-15] MEDS: K-DUR TAB 20 MEQ PO SCH (09:20)
--- NOTE | 2025-09-15 14:57 | CT ---
EXAM: ABDOMEN/PELVIS W/O CON HISTORY: abd pain ; COMPARISON: CT abdomen and pelvis 12/10/2023 TECHNIQUE: Multiple CT axial images of the abdomen and pelvis were obtained without IV contrast. Coronal and sagittal images were reconstructed. Dose reduction techniques included Automated Exposure Control (AEC) and adjustment of mA and kV. FINDINGS: The lung bases are clear. Heart size is normal. Atherosclerotic calcification is present in the coronary arteries. Well-defined mass left lobe liver is probably a cyst measuring 19 mm. Otherwise liver has normal size and density. Surgical clips are present in the gallbladder fossa from a cholecystectomy. The spleen is normal in size and shape. The adrenal glands are normal. The pancreas is normal. No abnormal calcifications are present in the kidneys or ureters. There are calcifications in the urinary bladder dependently probably representing a collection of small stones.. The kidneys have normal size and shape. There is no hydronephrosis or significant perirenal edema. The urinary bladder is contracted around a Bunch balloon catheter. The bowel is not dilated. There is no wall thickening in the bowel or edema around the bowel. There are diverticula in the colon. But there is no wall thickening or pericolonic edema to suggest acute diverticulitis. Compression fracture is present at L4, new since November 2023. This measures about 20-30%. No retropulsion of any bone fragment. There is also a superior endplate compression fracture at L1 also new. This measures about 10%. No retropulsion of any bone fragment. IMPRESSION: 1. Multiple small urinary bladder stones 2. New L1 and L4 compression fractures since November 2023 3. Colonic diverticula THIS IS AN ELECTRONICALLY VERIFIED FINAL REPORT 09/15/2025 2:53 PM - Electronically signed by Dewayne Nj MD
[2025-09-15] MEDS: VALIUM PO PRN (21:29)
--- NOTE | 2025-09-16 04:06 | EKG ---
Test Reason : hypertensive Blood Pressure : */* mmHG Vent. Rate : 65 BPM Atrial Rate : 65 BPM P-R Int : 204 ms QRS Dur : 100 ms QT Int : 478 ms P-R-T Axes : 78 53 258 degrees QTc Int : 497 ms Normal sinus rhythm Minimal voltage criteria for LVH, may be normal variant ( Juan product ) Nonspecific ST and T wave abnormality Prolonged QT Abnormal ECG When compared with ECG of 03-MAR-2024 14:42, ST elevation now present in Anterior leads Nonspecific T wave abnormality no longer evident in Anterior leads Confirmed by Gm Blount MD ([id number]) on 09/16/2025 7:04:02 AM Referred By: Confirmed By: Gm Blount MD
[2025-09-16] MEDS: CATAPRES TAB 0.1 MG PO ONE (04:15)
[2025-09-16 05:10] LABS: MEAN PLATELET VOLUME 7.5 fL (7.4-11.0); RED CELL DISTRIBUTION WIDTH 14.3 % (11.6-16.5)
[2025-09-16 05:19] LABS: COR CA(FOR HYPOALB) 9.6 mg/dL (8.5-10.1); CREATININE 0.89 mg/dL (0.55-1.02); eGFR NON BLACK RACES > 60 (>60)
[2025-09-16 06:37] VITALS: BMI 20.4
[2025-09-16] MEDS: K-DUR TAB 20 MEQ PO ONE (09:58)
[2025-09-16] MEDS: MAG-OX TAB PO SCH (09:59)
[2025-09-16] MEDS: CONSULT PHARMACY - POTASSIUM & MAGNESIUM XX SCH (12:28)
--- NOTE | 2025-09-16 12:35 | NOTE.SOAP ---
Soap Note Note for Day of Date of Exam: 09/16/25 Subjective Data Subjective Data: Still with anxious spells per staff. Currently resting comfortably after a rough night. Still on Invanz. CT yesterday showed new L1 and L4 compression fx compared to . Objective Data Objective Data: Thin, elderly female in NAD. Sleeping in left lateral decubitus position. Lungs clear with no snoring. RRR. Belly soft with BS present. Assessment Assessment: UTI AMS Hypokalemia L1/L4 vertebral compression fractures w/o retropulsuion Plan Plan: Increase [place] to 10 QID. Continue redirection. No other changes.
[2025-09-16] MEDS ORDERED: VALIUM PO PRN (12:40)
[2025-09-16] MEDS: VALIUM PO SCH (13:44)
[2025-09-16] MEDS: NORCO 10/325 TAB PO PRN (17:58)
[2025-09-17 05:15] LABS: MEAN PLATELET VOLUME 7.6 fL (7.4-11.0); RED CELL DISTRIBUTION WIDTH 14.4 % (11.6-16.5)
[2025-09-17 05:29] LABS: COR CA(FOR HYPOALB) 9.4 mg/dL (8.5-10.1); CREATININE 0.80 mg/dL (0.55-1.02); eGFR NON BLACK RACES > 60 (>60)
[2025-09-17] MEDS ORDERED: CONSULT PHARMACY - POTASSIUM & MAGNESIUM XX SCH (07:00)
[2025-09-17] MEDS: K-DUR TAB 20 MEQ PO ONE (09:46)
[2025-09-17] MEDS ORDERED: VOLTAREN 1 % GEL MULTI DOSE TUBE TOP PRN (13:57)
--- NOTE | 2025-09-17 14:20 | NOTE.SOAP ---
Soap Note Note for Day of Date of Exam: 09/17/25 Subjective Data Subjective Data: Not resting well, still. ALTA overnight. Labs and vitals stable. Very confused. Objective Data Objective Data: Elderly female that is confused. Speech is clear but does not always answer questions appropriately. Heart regular rate and rhythm. Lungs clear. Bowel sounds present. Able to sit up in bed on her own. Assessment Assessment: UTI with AMS, on Invanz L1 & L4 compression fxs Acquired hypothyroidism Plan Plan: Resume some home meds. No other changes.
[2025-09-17] MEDS: ALDACTONE TAB 25 MG PO SCH (14:37)
[2025-09-17] MEDS ORDERED: LEXAPRO ONE (20:23)
[2025-09-17] MEDS: MELATONIN PO SCH (21:12)
[2025-09-17] MEDS: LEXAPRO PO SCH (21:13)
[2025-09-18 06:05] LABS: MEAN PLATELET VOLUME 7.5 fL (7.4-11.0); RED CELL DISTRIBUTION WIDTH 14.6 % (11.6-16.5)
[2025-09-18 06:20] LABS: COR CA(FOR HYPOALB) 9.6 mg/dL (8.5-10.1); COR NA(FOR HYPERGLY) 141 mmol/L (136-145); CREATININE 0.88 mg/dL (0.55-1.02); eGFR NON BLACK RACES > 60 (>60)
[2025-09-18] MEDS ORDERED: CONSULT PHARMACY - POTASSIUM & MAGNESIUM XX SCH (07:00)
[2025-09-18] MEDS ORDERED: LEXAPRO ONE ×2 (07:44→21:02)
[2025-09-18] MEDS: K-DUR TAB 20 MEQ PO SCH ×2 (09:52→21:54)
[2025-09-18] MEDS: BENTYL CAP 10 MG PO SCH (18:08)
[2025-09-18] MEDS: VOLTAREN 1 % GEL MULTI DOSE TUBE TOP SCH (19:21)
[2025-09-19 05:13] LABS: BLOOD/HEMOGLOBIN,URINE 1+ (NEGATIVE); LEUKOCYTE ESTERASE ,URINE 1+ (NEGATIVE); NITRITES,URINE NEGATIVE (NEGATIVE)
[2025-09-19 05:35] LABS: APPEARANCE,URINE CLEAR (CLEAR); SQUAMOUS EPITHELIAL CELL,UR RARE /HPF (NEGATIVE)
[2025-09-19 06:26] LABS: MEAN PLATELET VOLUME 7.5 fL (7.4-11.0); RED CELL DISTRIBUTION WIDTH 14.5 % (11.6-16.5)
[2025-09-19 06:49] LABS: COR CA(FOR HYPOALB) 9.6 mg/dL (8.5-10.1); CREATININE 0.88 mg/dL (0.55-1.02); eGFR NON BLACK RACES > 60 (>60)
[2025-09-19] MEDS ORDERED: LEXAPRO ONE ×2 (09:24→21:06)
--- NOTE | 2025-09-19 15:35 | RAD ---
EXAM: CHEST, PA/LAT ADULT HISTORY: cough; COMPARISON: 09/13/2025 TECHNIQUE: PA and lateral FINDINGS: Stable cardiac silhouette. Chronic elevated right hemidiaphragm. No focal consolidation. No large pleural effusion or visible pneumothorax. IMPRESSION: No acute cardiopulmonary findings. THIS IS AN ELECTRONICALLY VERIFIED FINAL REPORT 09/19/2025 3:31 PM - Electronically signed by Keegan Salder MD
[2025-09-20 06:11] LABS: MEAN PLATELET VOLUME 7.6 fL (7.4-11.0); RED CELL DISTRIBUTION WIDTH 14.2 % (11.6-16.5)
[2025-09-20 06:25] LABS: COR CA(FOR HYPOALB) 9.5 mg/dL (8.5-10.1); CREATININE 0.86 mg/dL (0.55-1.02); eGFR NON BLACK RACES > 60 (>60)
[2025-09-20] MEDS ORDERED: LEXAPRO ONE ×2 (07:47→21:08)
[2025-09-21 05:54] LABS: MEAN PLATELET VOLUME 7.7 fL (7.4-11.0); RED CELL DISTRIBUTION WIDTH 14.2 % (11.6-16.5)
[2025-09-21 06:03] LABS: COR CA(FOR HYPOALB) 9.5 mg/dL (8.5-10.1); CREATININE 0.93 mg/dL (0.55-1.02); eGFR NON BLACK RACES > 60 (>60)
[2025-09-21] MEDS ORDERED: CONSULT PHARMACY - POTASSIUM & MAGNESIUM XX SCH (07:00)
[2025-09-21] MEDS ORDERED: LEXAPRO ONE (08:17)
[2025-09-21] MEDS: K-DUR TAB 20 MEQ PO SCH (10:33)
[2025-09-21] MEDS: TYLENOL 325 MG TAB PO PRN (13:29)
[2025-09-21 13:30] VITALS: RESP 18
[2025-09-21 14:54] VITALS: BP 157/72; PULSE 83; TEMP 97.9; O2SAT 98
== END 2025-09-21 17:10 ==
LOC: MED/SURG
PROVIDERS: ADMIT Internal Medicine; ATTEND Internal Medicine
DX: Z79.01 Long term (current) use of anticoagulants; R41.82 Altered mental status, unspecified; D64.89 Other specified anemias; Z58.89 Other problems related to physical environment; F41.8 Other specified anxiety disorders; R26.89 Other abnormalities of gait and mobility; E83.42 Hypomagnesemia; I48.20 Chronic atrial fibrillation, unspecified; K57.30 Diverticulosis of large intestine without perforation or abscess without bleeding; E03.8 Other specified hypothyroidism; M48.56XA Collapsed vertebra, not elsewhere classified, lumbar region, initial encounter for fracture; R53.1 Weakness; E87.6 Hypokalemia; R10.84 Generalized abdominal pain; R94.31 Abnormal electrocardiogram [ECG] [EKG]; R05.8 Other specified cough; E11.65 Type 2 diabetes mellitus with hyperglycemia; Z65.8 Other specified problems related to psychosocial circumstances; N39.0 Urinary tract infection, site not specified; Z99.81 Dependence on supplemental oxygen; Z87.442 Personal history of urinary calculi; F03.A18 Unspecified dementia, mild, with other behavioral disturbance; F32.89 Other specified depressive episodes; N21.0 Calculus in bladder; I10 Essential (primary) hypertension